=== PATIENT | female | born 2000 | race Caucasian/White ===

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

== ENCOUNTER 2022-08-09 12:40 | Emergency (ER) | payer OTHER, SELFPAY ==
--- NOTE | ~2022-08-09 | XR_ITS ---
EXAMINATION: XR chest 1V portable 08/09/2022 14:11 INDICATION: Chest pain and tightness PROCEDURE: AP portable chest COMPARISON: No prior studies for comparison. FINDINGS: The lungs are clear. The cardiomediastinal silhouette is within normal limits. There are no pleural effusions. There is no pneumothorax suspected. IMPRESSION: 1: NO ACUTE CARDIOPULMONARY DISEASE. Reviewed, dictated and finalized at location L.
--- NOTE | 2022-08-09 12:42 | ECG_ITS ---
Measurements Intervals [place] Rate: 68 P: 28 UT: 130 QRS: 54 QRSD: 89 T: 38 QT: 365 QTc: 390 Interpretive Statements SINUS RHYTHM BASELINE ARTIFACT- I, III, AVL NORMAL ECG NO PREVIOUS ECG AVAILABLE FOR COMPARISON Electronically Signed On 08-09-2022 12:55:27 CDT by Morro Tran D.O.
[2022-08-09 12:49] VITALS: BP 122/66; PULSE 74; RESP 18; TEMP 36.6; O2SAT 97
--- NOTE | 2022-08-09 13:41 | ED.CHESTPAIN ---
HPI - Chest Pain General Chief Complaint: Chest Pain <Octavia Angela PA-C - Last Filed: 08/09/22 15:35> Stated Complaint: chest pain <Octavia Angela PA-C - Last Filed: 08/09/22 15:35> Time Seen by Provider: 08/09/22 12:58 <Octavia Angela PA-C - Last Filed: 08/09/22 15:35> History of Present Illness HPI narrative: 22-year-old female, LMP 08/03, reports for evaluation of substernal chest pain x2 days. Patient reports the chest pain is intermittent and feels like a stabbing sensation. States the pain comes and last about 45 minutes. States it does not get better or worse with eating. She reports associated shortness of breath difficulty taking a deep breath when the chest pain is present. She also reports feeling lightheaded earlier today around 1100 after she bent over to the ground. States she had to sit on the ground afterwards due to the dizziness. Reports that she has been in the ED, the dizziness has resolved and she has not had any chest pain. Denies vision changes, focal numbness or weakness, abdominal pain, heartburn, nausea, vomiting, diarrhea, headache. Patient is currently asymptomatic. <Octavia Angela PA-C - Last Filed: 08/09/22 15:35> Related Data Allergies/Adverse Reactions: Allergies Allergy/AdvReac Type Severity Reaction Status Date / Time amoxicillin Allergy Swelling Verified 08/09/22 12:41 of Lip/Tongue/Throat <Octavia Angela PA-C - Last Filed: 08/09/22 15:35> Review of Systems Review of Systems: CONSTITUTIONAL: Denies fever, chills EYES: Denies visual changes, redness, or discharge. ENT: Denies rhinorrhea, congestion, sore throat, or otalgia. CARDIOVASCULAR: See HPI RESPIRATORY: Denies cough or dyspnea. GASTROINTESTINAL: Denies abdominal pain, nausea, vomiting, or diarrhea. GENITOURINARY: Denies dysuria or hematuria. SKIN: Denies rash or itching. MUSCULOSKELETAL: Denies back pain, joint pain, or myalgia. NEUROLOGIC: Denies headache, numbness, dizziness, or weakness. PSYCHIATRIC: Denies anxiety or depression. <Octavia Angela PA-C - Last Filed: 08/09/22 15:35> [facility] Past Medical History Medical History: Medical History Capsulitis of metatarsophalangeal (MTP) joint of right foot Metatarsalgia of right foot <Octavia Angela PA-C - Last Filed: 08/09/22 15:35> Social History Social History: Social History Smoking status: Never smoker <Octavia Angela PA-C - Last Filed: 08/09/22 15:35> Exam Narrative: GENERAL: Well-appearing, in no acute distress. Patient resting comfortably in exam bed. She is pleasant and conversational. HEAD: Normocephalic EYES: PERRLA, EOMI ENT: Nares clear. Mucous membranes moist. Oropharynx without tonsillar hypertrophy exudate or other lesions. NECK: Supple. CHEST: No respiratory distress. Clear to auscultation, no adventitious breath sounds. No tenderness to chest wall. HEART: Regular rate and rhythm. No murmur heard. Normal peripheral pulses. ABDOMEN: Soft, nontender, normal active bowel sounds. No CVA tenderness. EXTREMITIES: Normal range of motion. No edema. SKIN: Warm, dry, no rash. NEURO: No focal deficits. Alert and oriented x3. Cranial nerves II through XII grossly intact. Patient moving all extremities spontaneously. Ambulating without difficulty. PSYCH: Normal mood and affect. <Octavia Angela PA-C - Last Filed: 08/09/22 15:35> Course RELEASE MANAGER/PA Physician Supervision For this patient encounter, I reviewed the RELEASE MANAGER or PA documentation, treatment plan, and I was responsible for the medical decision making. <Gabriel Manning MD - Last Filed: 08/10/22 12:01> Vital Signs Vital signs: Vital Signs Temperature 98 F 08/09/22 12:49 Pulse Rate 74 08/09/22 12:49 Respiratory Rate 18 08/09/22 12:49 Blood Pressure 122/66 08/09/22 12:49 Pu
[2022-08-09] MEDS: SODIUM CHLORIDE 0.9% IV 1,000 ML 999 ML IV CONT (13:55)
[2022-08-09 14:05] LABS: Basophils Percent Auto 0.3 % (0.2-1.2); Eosinophils Absolute Auto 0.2 K/mm3 (0-0.3); Eosinophils Percent Auto 1.7 % (0-4.4); Hematocrit 41.5 % (37.0-47.0); Hemoglobin 13.4 g/dL (12.0-15.0); Immature Granulocyte Absolute 0.04 K/mm3 (0.00-0.031); Immature Granulocyte Percent A 0.4 % (0-0.5); Lymphocytes Absolute Auto 2.97 K/mm3 (0.9-3.2); Lymphocytes Percent Auto 29.4 % (18.3-44.2); Mean Corpuscular HGB Conc 32.3 g/dl (32-36); Mean Corpuscular Hemoglobin 28.7 pg (26-34); Mean Corpuscular Volume 88.9 fl (80-100); Mean Platelet Volume 10.6 fl (7.4-10.4); Monocytes Absolute Auto 0.7 K/mm3 (0.1-0.6); Monocytes Percent Auto 6.4 % (2.6-8.5); Neutrophils Absolute Auto 6.3 K/mm3 (1.3-6.7); Neutrophils Percent Auto 61.8 % (45.5-73.1); Platelet Count Result 235 k/mm3 (150-375); Red Blood Count 4.67 M/mm3 (4.2-5.4); Red Cell Distribution Width 12.3 % (11.5-14.5); White Blood Count 10.1 K/mm3 (4.5-10.0)
[2022-08-09 14:08] LABS: Appearance Urine Cloudy (Clear); Bacteria Urine Rare /hpf; Bilirubin Urine Negative (Negative); Blood Urine Negative (Negative); Color Urine Yellow (Yellow); Glucose Urine UA Negative (Negative); Ketones Urine Negative (Negative); Leukocyte Esterase Ur 1+ LEU/UL (Negative); Nitrate Urine Negative (Negative); Non Pathogenic Casts 0-2; Protein Urine Negative (Negative); RBC Urine 0-2 /hpf (0-2); Specific Grav Ur 1.021 (1.001-1.035); Squamous Epithelial Cell Urine Many /hpf (Few); Urobilinogen Urine 0.2 mg/dL (<2.0)
[2022-08-09 14:14] LABS: Add Urine Microscopic? YES; Alanine Aminotransferase 25 U/L (6-35); Albumin Level 4.6 g/dL (3.5-5.1); Alkaline Phosphatase 65 U/L (38-126); Anion Gap 8 mmol/L (8-16); Aspartate Amino Transferase 24 U/L (14-36); Bilirubin,Total 0.5 mg/dL (0.2-1.3); Blood Urea Nitrogen 12 mg/dL (7-17); Calcium 9.1 mg/dL (8.4-10.2); Carbon Dioxide 28 mmol/L (22-30); Chloride 103 mmol/L (98-107); Estimated CRCL calculation 151 ml/min; Estimated Glomerular Filt Rate > 60; Glucose 85 mg/dL (65-110); Lipase 44 U/L (23-300); Sodium 139 mmol/L (137-145)
[2022-08-09 14:29] VITALS: BP 118/76; BP 122/71; BP 125/79; PULSE 75; PULSE 82
[2022-08-09 14:35] LABS: Troponin I < 0.012 ng/mL (0.000-0.034)
== END 2022-08-09 15:34 | disposition home or self-care (01) ==
PROVIDERS: Emergency Provider Physician Assistant
DX: R07.89 Other chest pain (principal); N39.0 Urinary tract infection, site not specified
CPT/HCPCS: 36415; 71045; 80053; 81001; 81025; 83690; 84484; 85025; 85380; 87086; 87088; 93005; 96360; 99284; J7030

== ENCOUNTER 2023-09-17 16:27 | Emergency (ER) | payer SELFPAY ==
[2023-09-17 16:29] VITALS: BP 129/81; PULSE 94; RESP 18; TEMP 36.6; O2SAT 100
[2023-09-17 17:04] LABS: Basophils Percent Auto 0.3 % (0.2-1.2); Eosinophils Absolute Auto 0.1 K/mm3 (0-0.3); Hematocrit 38.2 % (37.0-47.0); Hemoglobin 12.9 g/dL (12.0-15.0); Immature Granulocyte Absolute 0.05 K/mm3 (0.00-0.031); Immature Granulocyte Percent A 0.5 % (0-0.5); Lymphocytes Absolute Auto 2.17 K/mm3 (0.9-3.2); Lymphocytes Percent Auto 20.7 % (18.3-44.2); Mean Corpuscular HGB Conc 33.8 g/dl (32-36); Mean Corpuscular Hemoglobin 28.9 pg (26-34); Mean Corpuscular Volume 85.7 fl (80-100); Mean Platelet Volume 11.1 fl (7.4-10.4); Monocytes Absolute Auto 0.5 K/mm3 (0.1-0.6); Monocytes Percent Auto 4.7 % (2.6-8.5); Neutrophils Absolute Auto 7.6 K/mm3 (1.3-6.7); Neutrophils Percent Auto 72.8 % (45.5-73.1); Platelet Count Result 195 k/mm3 (150-375); Red Blood Count 4.46 M/mm3 (4.2-5.4); Red Cell Distribution Width 12.3 % (11.5-14.5); White Blood Count 10.5 K/mm3 (4.5-10.0)
[2023-09-17 17:10] LABS: Appearance Urine Cloudy (Clear); Bacteria Urine 1+ /hpf; Bilirubin Urine Negative (Negative); Blood Urine Negative (Negative); Color Urine Yellow (Yellow); Glucose Urine UA Negative (Negative); Ketones Urine Trace mg/dL (Negative); Leukocyte Esterase Ur Trace LEU/UL (Negative); Nitrate Urine Negative (Negative); Non Pathogenic Casts 0-2; Protein Urine Negative (Negative); RBC Urine 0-2 /hpf (0-2); Specific Grav Ur 1.037 (1.001-1.035); Squamous Epithelial Cell Urine Many /hpf (Few); WBC Urine 21-50 /hpf (0-3); pH Urine 5.5 (5.0-9.0)
[2023-09-17 17:13] LABS: Alanine Aminotransferase 15 U/L (6-35); Albumin Level 4.4 g/dL (3.5-5.1); Alkaline Phosphatase 52 U/L (38-126); Anion Gap 6 mmol/L (4-12); Aspartate Amino Transferase 19 U/L (14-36); Bilirubin,Total 0.4 mg/dL (0.2-1.3); Blood Urea Nitrogen 11 mg/dL (7-17); Calcium 9.2 mg/dL (8.4-10.2); Carbon Dioxide 25 mmol/L (22-30); Chloride 106 mmol/L (98-107); Estimated CRCL calculation 154 ml/min; Estimated Glomerular Filt Rate > 60; Glucose 102 mg/dL (65-110); Lipase 50 U/L (23-300); Potassium 4.2 mmol/L (3.4-5.0); Pregnancy On Board Control Positive; Sodium 137 mmol/L (137-145); Urine Pregnancy Test Positive
--- NOTE | 2023-09-17 17:13 | ED.ABDPAIN ---
HPI - Abdominal Pain General Chief Complaint: Abdominal Pain Stated Complaint: abd pain Time Seen by Provider: 09/17/23 17:00 Source: patient Mode of arrival: ambulatory Limitations: no limitations History of Present Illness HPI narrative: Patient is 23 years old white female reports intermittent abdominal pain with nausea for over 1 month. Last menstrual period June 2023. Patient is 0, para 0 0. Patient denies any vaginal bleeding or discharge, currently no abdominal pain. Related Data Allergies Allergy/AdvReac Type Severity Reaction Status Date / Time amoxicillin Allergy Swelling Verified 08/09/22 12:41 of Lip/Tongue/Throat Review of Systems Review of Systems: All systems reviewed & are unremarkable except as noted in HPI and below PMFSH Past Medical History Medical History Capsulitis of metatarsophalangeal (MTP) joint of right foot Metatarsalgia of right foot Social History Social History Smoking status: Never smoker Exam Narrative: General appearance: Well-developed, well-nourished Skin: Normal color Head: Normocephalic, nontraumatic Eyes: Clear conjunctiva ENT: Oropharynx normal, ears normal, nose normal Neck: Supple, nontender Chest and respiratory: Airway patent, no respiratory distress, no accessory muscle use Heart: Regular rate/rhythm Abdomen: Soft, nontender, no organomegaly, quiet bowel sounds Vascular: Normal peripheral pulses, normal capillary refill. Musculoskeletal: Normal range of motion, nontender back Neurologic: Alert and oriented ?3, SPUD SORTER is normal as tested, no gross motor deficit Course Vital Signs Vital signs: Vital Signs Temperature 36.6 C 09/17/23 16:29 Pulse Rate 94 09/17/23 16:29 Respiratory Rate 18 09/17/23 16:29 Blood Pressure 129/81 09/17/23 16:29 Pulse Oximetry 100 09/17/23 16:29 Oxygen Delivery Room Air 09/17/23 16:29 Temperature 36.6 C 09/17/23 16:29 Pulse Rate 94 09/17/23 16:29 Respiratory Rate 18 09/17/23 16:29 Blood Pressure 129/81 09/17/23 16:29 Pulse Oximetry 100 09/17/23 16:29 Oxygen Delivery Room Air 09/17/23 16:29 MDM - Abdominal Pain MDM Narrative Medical decision making narrative: Differential diagnosis included , urinary tract infection, electrolyte imbalance, gastritis, urinary tract infection Laboratory workup showed WBC of 10.5, urine test is positive, urinalysis positive for infection Discharged on amoxicillin, OBGYN follow-up, Tylenol as needed plus Zofran Differential Diagnosis Differential diagnosis: Likely other (As above) Medical Records Attestation: I reviewed the patient's medical records. Lab Data Attestation: I reviewed the patient's lab results. 09/17/23 16:56 09/17/23 16:56 Labs: Lab Results 09/17/23 Range/Units 16:56 WBC 10.5 H (4.5-10.0) K/mm3 RBC 4.46 (4.2-5.4) M/mm3 Hgb 12.9 (12.0-15.0) g/dL Hct 38.2 (37.0-47.0) % MCV 85.7 (80-100) fl MCH 28.9 (26-34) pg MCHC 33.8 (32-36) g/dl RDW 12.3 (11.5-14.5) % Plt Count 195 (150-375) k/mm3 MPV 11.1 H (7.4-10.4) fl Immature Gran % (Auto) 0.5 (0-0.5) % Neut % (Auto) 72.8 (45.5-73.1) % Lymph % (Auto) 20.7 (18.3-44.2) % [place] % (Auto) 4.7 (2.6-8.5) % Eos % (Auto) 1.0 (0-4.4) % Baso % (Auto) 0.3 (0.2-1.2) % Lymph # (Auto) 2.17 (0.9-3.2) K/mm3 [place] # (Auto) 0.5 (0.1-0.6) K/mm3 Eos # (Auto) 0.1 (0-0.3) K/mm3 Baso # (Auto) 0.0 (0.0-0.1) K/mm3 Abs Immat Gran (auto) 0.05 H (0.00-0.031) K/mm3 Absolute Neuts (auto) 7.6 H
[2023-09-17 17:14] LABS: Add Urine Microscopic? YES
== END 2023-09-17 17:47 | disposition home or self-care (01) ==
PROVIDERS: Emergency Medicine; Emergency Provider Emergency Medicine
DX: O23.40 Unspecified infection of urinary tract in pregnancy, unspecified trimester (principal); N39.0 Urinary tract infection, site not specified; Z3A.00 Weeks of gestation of pregnancy not specified
CPT/HCPCS: 36415; 80053; 81001; 81025; 83690; 85025; 87086; 99283

== ENCOUNTER 2023-11-20 10:33 | Outpatient (CLI) | payer MEDICAID, SELFPAY ==
--- NOTE | ~2023-11-20 | US_ITS ---
EXAMINATION: US OB /maternal detail DATE: 11/20/2023 11:09 INDICATION: Anatomic survey. Uncertain dates. TECHNIQUE: Real-time ultrasound of the pelvis was performed. COMPARISON: None. FINDINGS: There is a single living fetus in breech presentation. The placenta is anterior, 6.2 cm from the cer vix. The cervical length is 3.2 cm on transabdominal images, which is normal. heart rate is 140 beats per minute (bpm). The amniotic fluid volume is subjectively normal. The following biometric data were obtained: Biparietal diameter (BPD): 4.1 cm; head circumference (HC): 15.0 cm; abdominal circumference (AC): 14 .0 cm; femur length (FL): 2.7 cm. These measurements are discordant with low HC/AC ratio. Estimated weight is 258 g +/- 39 g, which correlates with the <3rd percentile when 04/02/24 is u sed as estimated date of delivery. As single measurements, these parameters are each equal to the following estimated gestational ages: BPD: 18 weeks 3 days. HC: 18 weeks 0 days. AC: 19 weeks 3 days. FL: 18 weeks 3 days. estimated gestational age based solely on measurements from this exam is 18 weeks 4 days +/- 1 weeks 2 days. The cerebral ventricles, cerebellum, cisterna magna, nuchal fold, and spine are normal. The diaphragm , stomach, and kidneys are normal. There are two umbilical arteries to yield a 3-vessel cord. The cor d insertion is normal. IMPRESSION: 1. Single living fetus in breech presentation. 2. Small for gestational age. Estimated weight is 258 g +/- 39 g, which correlates with the <3 rd percentile when 04/02/24 is used as estimated date of delivery. 3. Discordant biometrics with low HC/AC. 4. heart and bladder not well visualized. Otherwise normal anatomic survey. Reviewed, dictated and finalized at location A. IMPRESSION: 1. Single living fetus in breech presentation. 2. Small for gestational age. Estimated weight is 258 g +/- 39 g, which correlates with the <3rd percentile when 04/02/24 is used as estimated date of d elivery. 3. Discordant biometrics with low HC/AC. 4. heart and bladder not well visualized. Otherwise normal anatomic survey.
== END 2023-11-20 10:34 | disposition home or self-care (01) ==
LOC: MICIMG 10:34
PROVIDERS: PCP Nurse Practitioner Women's Health; Visit Provider Nurse Practitioner Women's Health
DX: Z36.87 Encounter for antenatal screening for uncertain dates (principal)
CPT/HCPCS: 76805

== ENCOUNTER 2024-02-25 13:41 | Observation (INO) | payer MEDICAID, SELFPAY ==
[2024-02-25 14:02] VITALS: BMI 38.0
--- NOTE | 2024-02-25 14:04 | OBADM ---
This patient, Yvrose Mazariegos, admitted to the OB room OB Post 116 for observation. Patient/family oriented to hospital policies and general routines including ID bracelet, bed and alarms, visiting hours, pain management, procedures, bathroom and other care routines, personal items, smoking policy, room service/diet, and visiting hours. Patient/Family are encouraged to report perceived risks to care and to ask questions if they do not understand what they are told or what they should do.
[2024-02-25 14:28] VITALS: BP 121/67; PULSE 96
--- NOTE | 2024-02-25 14:51 | PC.NURSE ---
Dr. Elizabeth called regarding patient's complaint of abdominal pain to the left of her belly button. NST reactive, no contractions, leaking or vaginal bleeding. Okay to discharge.
--- NOTE | 2024-03-27 11:12 | PM.OBTRLD ---
OB - Triage/Final Diagnosis Visit Information Comments/Additional reasons for admission: I have assessed the risk for this patient, Yvrose aMzariegos, and determined that she would benefit from observation care. Final Diagnosis (1) Abdominal pain affecting : Code(s): O26.899 - Other specified related conditions, unspecified trimester; R10.9 - Unspecified abdominal pain Status: Acute
== END 2024-02-25 14:52 ==
PROVIDERS: Admitting Provider Obstetrics & Gynecology Gynecology; Visit Provider Obstetrics & Gynecology
DX: O26.893 Other specified pregnancy related conditions, third trimester (principal); R10.9 Unspecified abdominal pain; Z3A.32 32 weeks gestation of pregnancy
CPT/HCPCS: G0378; G0379

== ENCOUNTER 2024-04-04 21:59 | Observation (INO) | payer MEDICAID, SELFPAY ==
[2024-04-04 22:08] VITALS: BP 126/82; PULSE 97
[2024-04-04 22:15] VITALS: BP 126/71; PULSE 91
[2024-04-04 22:30] VITALS: BP 120/85; PULSE 92
[2024-04-04 22:45] VITALS: BP 122/77; PULSE 95
--- NOTE | 2024-04-04 23:18 | OBADM ---
This patient, Yvrose Mazariegos, admitted to the OB room Labor/Delivery/Recovery 105 for observation. Patient/family oriented to hospital policies and general routines including ID bracelet, bed and alarms, visiting hours, pain management, procedures, bathroom and other care routines, personal items, smoking policy, room service/diet, and visiting hours. Patient/Family are encouraged to report perceived risks to care and to ask questions if they do not understand what they are told or what they should do.
[2024-04-04 23:22] VITALS: BMI 23.4
--- NOTE | 2024-04-06 08:01 | PM.OBTRLD ---
OB - Triage/Final Diagnosis Visit Information Reason for evaluation: threatened labor Comments/Additional reasons for admission: I have assessed the risk for this patient, Yvrose Mazariegos, and determined that she would benefit from observation care.
--- OUTSIDE RECORDS SUMMARY | 2024-04-09 09:38 | XMS_ITS | Referral Summary ---
Author Organization [facility] Address [address] [place] [address] Care Team Providers Care Cad Administrator Name Role Phone Unavailable Primary Care Provider Unavailabl e Source Comments [facility],non-owned Affiliates and Associated Physician Practices is amultiple site organization consisting of ambulatory clinics and hospital sitesin [place], [place], [place] and [place]. This disclosure is being madepursuant to the Care Everywhere program and may not contain all information available regarding this patient. Last updated 17.[facility] Allergies Active Allergy Reactions Criticality Noted Date Comments Amoxicillin Rash,Swelling Low 09/08/2012 Swelling of the tongue Penicillins Anaphylaxis High 01/23/2020 Medications * Be aware that medications may not be up to date on this document. Alwaysverify current medications with the patient. Medication Sig Dispensed Refills Start Date End Date Status naproxen (NAPROSYN) 500 MG tablet Take 1 (one) tablet by mouth 2 times daily 180 tablet 12/26/2020 Active Additional Information Patient not taking.Reported on 01/17/2021 Active Problems Problem Noted Date Diagnosed Date Migraine with aura and witho ut status migrainosus, not intractable 05/13/2017 Assessment & Plan (09/02/2017 10:04 AM CDT): Chronic migraines without aura, worsened by several lifestyle issues such as hydration, sedentary lifestyle/increased screen time, neck muscle tightness etc. Will try to improve lifestyle issues and then can consider switching daily preventatives if headaches do not improve. 1. Keep headache diary 2. Maintain active lifestyle - increase physical activity, reduce screen time. 3. Eat healthy diet, and do not skip meals 4. Drink plenty of water, and avoid caffeine regularly. 5. Sleep: 1. Maintain good sleep routine. 2. Avoid distractions at bedtime such as TV, computer. 3. Get at least 8-10 hours of sleep nightly 4. Reduce daytime naps. 6. Do not use pain medication (such as Tylenol, Ibuprofen) more than 2-3 times/week in order to avoid medication overuse headaches 7. Use Naproxen 50 mg tabs - 1 tab needed only for moderate-severe headaches. 8. If Naproxen is ineffective within 30-45 minutes, then may take Imitrex 100 mg tabs - 1 tab as needed for headaches. May repeat in 2-4 hours if no relief. No more than 2 tabs in 24 hours. Take Zofran 4 mg tabs - 1 tab for associated nausea. 9. Continue with Topamax 75 mg twice daily. Take regularly and as prescribed. 10. Refer to PT to address neck muscle tightness. 11. Call in 4-6 weeks with update regarding headaches, sooner for concerns BMI (body mass index), cristinaia tric, 85% to less than 95% for age 0609/08/2012 Resolved Problems Problem Noted Date Diagnosed Date Resolved Date Chronic headaches 09/08/2012 05/13/2017 Immunizations Name Administration Dates Next Due DTaP VACCINE IM (6wk-6yrs) 06/26/2006,,2001,06/05,2001 HEP A PEDS 2 DOSE 05/17/2015,08/23/2014 HIB Hep B 02/11/2002,2001,2001 Human Papilloma Virus Luis Eduardo valent Vaccine 08/23/2014 MENINGOCOCCAL CONJUGATE (MCV4P) 07/22/2017,08/23 MMR 06/26/2006,05/12/2002 PNEUMOCOCCAL PCV7 CONJ, PEDS 05/12/2002, 2001,2001,04/01 POLIO IPV 06/26/2006, 3,2001,04/01 TDAP (7yrs+) 09/08/2012 VARICELLA 06/26/2006,02/11/2002 Social History Tobacco Use Types Packs/Day Years Used Date Smoking Tobacco: Never Smokeless Tobacco: Never Comments:father smokes in th e house when they visit Alcohol Use Standard Drinks/Week Comments Never 0 (1 standard drink = 0.6 oz pur e alcohol) AUDIT-C Answer Date Recorded Q1: How often do you have a drink containing alc ohol? Never 11/24/2019 Average Number of Drinks Not on file Frequency of Binge Drinking Not on file 10/2019 PHQ-2 Answer Date Recorded PHQ2 TOTAL SCORE 0 01/18/2021 Sex and Gender Information Value Date Recorded Sex Assigned at Not on file Gender Identity Not on file Sexual Orientation Not on file Last Filed Vital Signs Vital Sign Reading Time Taken Comments Blood Pressure 135/81 01/17/2021 10:44 AM CDT Pulse 94 01/17/2021 10:44 AM CDT Temperature 36.9 ??C (98.5 ??F) 01/17/2021 10:44 AM C DT Respiratory Rate - - Oxygen Saturation - - Inhaled Oxygen Concentration - - Weight 111.6 kg (246 lb) 01/17/2021 10:44 AM CDT Height 166.4 cm (5' 5.5 ) 11/24/2019 9:29 AM CDT Body Mass Index 40.31 11/24/2019 9:29 AM CDT Plan of Treatment Not on file Goals Goal Patient Goal Type Associated Problems Recent Progress Patient-Stated? Author Exercise 3X per week (30 min per time) Exercise Not on track( 9:30 AM CDT) No Mgai Hernandez APRN-INGOT SUPERVISOR Use safety retraint in car Lifestyle On track( 9:30 AM CDT) No Estee Trevino, JOSE Administered Medications
--- OUTSIDE RECORDS SUMMARY | 2024-04-09 09:38 | XMS_ITS | Clinical Summary ---
Author Organization [facility] Address [address] [place] [address] Care Team Providers Care Recruitment Consultant Name Role Phone Unavailable Primary Care Provider Unavailabl e Source Comments [facility],non-owned Affiliates and Associated Physician Practices is amultiple site organization consisting of ambulatory clinics and hospital sitesin [place], [place] and [place]. This disclosure is being madepursuant to the Care Everywhere program and may not contain all information available regarding this patient. Last updated 17.[facility] Allergies Active Allergy Reactions Criticality Noted Date [...] 06/26/2006, 3,2001,04/01 TDAP (7yrs+) 09/08/2012 VARICELLA 06/26/2006,02/11/2002 Family History Medical History Relation Name Comments Hypertension Maternal Grandfather Diabetes Maternal Grandmother Heart Failure Maternal Grandmother heart attack 2012 Hypertension Maternal Grandmother Diabetes Mother Migraine Mother Heart Failure Paternal Grandfather Hypertension Paternal Grandfather Hypertension Paternal Grandmother Relation Name Status Comments Father Alive Maternal Grandfather Alive Maternal Grandmother Alive Mother Alive Paternal Grandfather Alive Paternal Grandmother Alive Sister Alive Social History Tobacco Use Types Packs/Day Years [...] Average Number of Drinks Not on file 020 Frequency of Binge Drinking Not on file [...] 11/24/2019 9:29 AM CDT Plan of Treatment Health Maintenance Due Date Last Done Comments PAP SMEAR 2001 HIV SCREENING 01/29/2016 CHLAMYDIA/GONORRHEA SCREENING 2017 MENINGOCOCCAL (Group B) VACC INE (1 of 2 - Standard) 2017 HEPATITIS C SCREENING 01/24/2019 DTAP/TDAP/TD VACCINES (7 - T d or Tdap) 09/08/2022 09/08/2012, 06/26/2006, 07/30/2002, Additional history exists COVID-19 VACCINE (3 - 2023-2 5 season) 2023 06/05/2020, 05/14/2020 INFLUENZA VACCINE (#1) 2023 DEPRESSION SCREENING 03/18/2024 11/24/2019, 11/24/19 20 ZOSTER VACCINE (1 of 2) 2051 HEPATITIS B VACCINE Completed 02/11/2002, 2001, 2001 HIB VACCINE Completed 02/11/2002, 05/17, 2001 PNEUMOCOCCAL VACCINE Completed 05/12/2002, 2001, 2001, Additional history exists HPV VACCINE Discontinued 08/23/2014 MENINGOCOCCAL VACCINE Completed 07/22/2017, 015 Goals Goal Patient Goal Type Associated Problems Recent Progress Patient-Stated? Author Exercise 3X per week (30 min per time) Exercise Not on track( 9:30 AM CDT) No Magi Hernandez APRN-FRONT OFFICE HELP Use safety retraint in car Lifestyle On track( 9:30 AM CDT) No Estee Trevino, JOSE
--- OUTSIDE RECORDS SUMMARY | 2024-04-09 09:39 | XMS_ITS | Clinical Summary ---
Author Organization [facility] Address [address] [place] [phone] Phone Care Team Providers Care Warp Dresser Name Role Phone Unavailable Primary Care Provider Unavailabl e Social History Tobacco Use Types Packs/Day Years Used Date Smoking Tobacco: Never Assessed Comments Unknown Sex and Gender Information Value Date Recorded Sex Assigned at Not on file Legal Sex Female 3:06 PM CDT Gender Identity Not on file Sexual Orientation Not on file Plan of Treatment Health Maintenance Due Date Last Done Comments CHLAMYDIA SCREENING (ANNUAL) 11-24 YEARS 01/29/2012 HPV VACCINES (2 - 2-dose series) 02/22/2015 08/23/2014 CERVICAL CANCER SCREENING 2022 DTAP/TDAP/TD VACCINES (7 - Td or Tdap) 09/08/2022 09/08/2012, 06/26/2006, 07/30/2002, Additional history exists INFLUENZA VACCINE (#1) 2023 HEPATITIS B VACCINES Completed 02/11/2002, 2001, 2001 PNEUMOCOCCAL VACCINE 0-64 YEARS Aged Out 05/12/2002, 2001, 2001, Additional history exists No longer eligible based on patient's age to complete this topic Insurance MEDICAID [place]
--- OUTSIDE RECORDS SUMMARY | 2024-04-09 09:39 | XMS_ITS | Patient Health Summary ---
Author Organization [facility] [employer] Address [address] [place] [address] Care Team Providers Care Nuclear Control Operator Name Role Phone Unavailable Primary Care Provider Unavailabl e Note from [facility] [place],non-owned Affiliates and Associated Physician Practices is amultiple site organization consisting of ambulatory clinics and hospital sitesin [place], [place], [place] and [place]. This disclosure is being madepursuant to the Care Everywhere program and may not contain all information available regarding this patient. Last updated 17.[facility] [employer] Allergies * Amoxicillin(Rash,Swelling) -Low Criticality * Penicillins(Anaphylaxis) -High Criticality Medications * Be aware that medications may not be up to date on this document. Alwaysverify current medications with the patient. * naproxen (NAPROSYN) 500 MG tablet(Started 12/26/2020) Take 1 (one) tablet by mouth 2 times daily Active Problems Problem Noted Date Diagnosed Date Migraine with aura and witho ut status migrainosus, not intractable 05/13/2017 BMI (body mass index), pedia tric, 85% to less than 95% for age 0609/08/2012 Resolved Problems Problem Noted Date Diagnosed Date Resolved Date Chronic headaches 09/08/2012 05/13/2017 Immunizations * DTaP VACCINE IM (6wk-6yrs)(Given 06/26/2006, 07/30/2002, 2001, 2001, 2001) * HEP A PEDS 2 DOSE(Given 05/17/2015, 08/23/2014) * HIB Hep B(Given 02/11/2002, 2001, 2001) * Human Papilloma Virus Quadrivalent Vaccine(Given 08/23/2014) * MENINGOCOCCAL CONJUGATE (MCV4P)(Given 07/22/2017, 08/23/2014) * MMR(Given 06/26/2006, 05/12/2002) * PNEUMOCOCCAL PCV7 CONJ, PEDS(Given 05/12/2002, 2001, 2001, 2001) * POLIO IPV(Given 06/26/2006, 07/30/2002, 2001, 2001) * TDAP (7yrs+)(Given 09/08/2012) * VARICELLA(Given 06/26/2006, 02/11/2002) Social History Tobacco Use Types Packs/Day Years [...] Mass Index 40.31 11/24/2019 9:29 AM CDT Procedures * XR FOOT RIGHT 2VW(Performed 12/26/2020) Performed for Right foot pain * SKIN TEST PPD - POINT OF CARE(Performed 01/25/2020) Performed for PPD screening test * CULTURE FUNGUS OTHER(Performed 12/17/2017) Performed for Rash * LIPID PROFILE+GLUCOSE - POINT OF CARE (AMB)(Performed 07/22/2017) Performed for Screening cholesterol level * CT HEAD WO CONTRAST(Performed 05/11/2014) Results * XR FOOT RIGHT 2VW (12/26/2020) Anatomical Region Laterality Modality Ankle / Foot Other 12/26/2020 Dannie Hung DO DIAGNOSTIC IMAG ING ORDERABLES * SKIN TEST PPD - POINT OF CARE (01/25/2020 3:12 PM FOREIGN BANKNOTE TELLER) PPD 0 MM Comment:negative Other MISCELLANEOUS SAMPLE S / Unknown 01/25/2020 3:12 PM FOREIGN BANKNOTE TELLER Josephine Tinsley SUBSTATION SUPERINTENDENT-MORTGAGE LOAN OFFICER LAB - POINT OF CARE ORDERABLES * CULTURE FUNGUS OTHER (12/17/2017 4:05 PM CDT) Fungus Culture Final report [facility] ACCOUNT BILL Result 1 Trichophyton species [facility] ACCOUNT BILL Microbiology LESION SPECIMEN / Unknown 12/17/2017 4:05 PM CDT 12/17/2017 Narrative Resulting Agency Comment [facility] [address] ??[facility] [phone] Dannie Hung DO LAB - MICROBIOL OGY ORDERABLES [facility] ACCOUNT BILL [address] [place] [address] * LIPID PROFILE+GLUCOSE - POINT OF CARE (AMB) (07/22/2017 10:53 AM CDT) QC Verified Yes Yes Cholesterol POCT 165 200 mg/dl HDL POCT 28 mg/dL Triglycerides POCT 93 130 mg/dL LDL 118 130 mg/dl Non HDL Cholesterol POCT 137 145 mg/dL Total Cholesterol/HDL Ratio POCT 5.9 6.0 Glucose 100 70 - 126 mg/dL Blood BLOOD SPECIMEN / Unknown 07/22/2017 10:53 AM CDT Sadia Bingham MD LAB - POINT OF CARE ORDERABLES * CT HEAD NON CONTRAST (05/11/2014) Anatomical Region Laterality Modality Head Other Sadia Bingham MD CT ORDERABLES
--- OUTSIDE RECORDS SUMMARY | 2024-04-09 09:39 | XMS_ITS | Data Portability ---
Author Organization [facility] [employer]os , [facility]Gianfranco Address [address] [place] [address] Assessment Encounter Date Assessment Date Assessment LastModified by Organization Details LastModified Time 10/30/2023 10/30/2023 Pt comes in today for a New/First OB visit. AD: 04/17/2024 based on US -- PMH:No PMH -- Medications: Taking daily PNV, not taking any other medications -- Mom/Sisters with hx of Pre-Eclampsia: Mom -- History of Genital HSV: Denies -- Genetic Questions in OB Episode Done -- Accepts [facility]. Would like to know gender. Discussed logging on to the [employer] portal to find Gender Results POC -- NOB labs done today -- Accepts [facility] -- PAP -- Low dose aspirin recommended -- Pre- BMI: 37.5 -- RTC 3 weeks [email or web address] Not available 10/30/2023 11:23:27 Plan of Treatment Reminders Order Date Submit Date Provider Last Modified By Organization Details Last Modified Time Details Appointments None recorded. Lab test, urine 2023 024 [email or web address] [facility], [address] [place], [address], 4 10:33:34 genetic screen, unspecified specimen 2023 024 SAMMIE Allen, [address], [place], [address], 4 19:17:51 hemoglobin A1c, QN, blood 2023 024 SAMMIE Briceño Wilfred[facility], [address] [place], [address], 4 11:15:01 abo group + rh type, blood 2023 [facility], [address] [place], [address], 4 16:50:42 CBC w/ auto diff 2023 [facility], [address] [place] [address], [address], 4 12:02:00 CT + NG DNA, PCR, unspecified specimen 2023 [facility], [address] [place] [address], [address], 4 11:51:36 drug of abuse panel, urine 2023 [facility] [address], [address] [place], [address], 4 16:18:00 obstetric screen + HIV, serum or blood 2023 [facility] [address], [address] [place], [address], 4 14:47:41 measles igg Ab, serum 2023 [facility], [address] [place], [address], 4 16:50:41 culture, urine 2023 [facility], [address] [place], [address], 4 16:50:42 varicella-z anam igg Ab screen, serum 2023 024 [facility], [address] [place], [address], 4 16:50:39 hemoglobino abran profile, blood 2023 [facility], [address] [place], [address], 4 16:50:39 antibody screen, serum or plasma 2023 [facility], [address] [place], [address], 4 16:50:41 aneuploidy risk, chromosome specific circulating cell free (ccf) DNA, maternal serum [facility], [place], [address], 4 03:49:31 afp (alpha-feto protein) panel, maternal screen, serum 2023 [facility], [address] [place], [address], 4 16:50:40 Referral None recorded. Procedures None recorded. Surgeries None recorded. Imaging US, transvagina l 2023 RICHMOND Not available 15:22:46 Medication Orders Adult Low Dose Aspirin 81 mg tablet,lane yed release 2023 [id number], [address] [facility], [place], [place], [id number], 4 11:18:08 Patient TargetsNo targets recorded. Patient Instructions Encounter Date Encounter Id Patient Instructions Last Modified By Organization Details Last Modified Time 10/22/2023 [id number] [facility] OB Booklet [email or web address] Not available 10/22/2023 10:33:32 Reason for Referral None Reported. Results Created Date Observation Date Name Description Value Unit Range Abnormal Flag Note LastModifiedBy Organization Detail LastModifiedTime 10/22/19 24 10/22/2023 pregn geoff test, urine HCG positi ve Not Available [facility] [address] [facility], [place], [address], 10/22/2023 09:20:20 10/30/19 24 10/31/2023 HEMOG LOBIN A1C hemoglobin A1C 4.9 % <5.7 normal The refer ence range for HbA1c is indic ated in the table below . Sugge sted Diagn osis =6.5% Consi stent with diabe kenia 5.7 6.4% Consi stent with incre ased risk for diabe kenia (pred iabet ic) <5.7% Consi stent with the absen ce of diabe kenia Not Available [facility] [address] [place], [address], 10/31/2023 11:15:01 10/30/19 24 10/31/2023 CT/NG chlamydia trachomatis CT neg negati ve normal This repor t is inten ded for us in clini massiel monit oring and manag ement of patie nts. It is not inten ded for use in medic al-le gal appli catio n. Not Available [place] [facility] [address] [place], [address], 10/31/2023 11:51:36 10/30/19 24 10/31/2023 CT/NG neisseria gonorrhoeae GC neg negati ve normal This repor t is inten ded for us in clini massiel monit oring and manag ement of patie nts. It is not inten ded for use in medic al-le gal appli catio n. Not Available [place] [facility] [address] [place], [address], 10/31/2023 11:51:36 10/30/19 24 10/31/2023 CBC (INCL UDES DIFF/ PLT) WBC 10.6 thous and/u L 4.0 - 9.8 high Not Available [place] [address] [place], [address], 10/31/2023 12:02:00 10/30/19 24 10/31/2023 CBC (INCL UDES DIFF/ PLT) RBC 4.3 ryann on/uL 3.9 - 4.9 normal Not Available [address], [address], 10/31/2023 12:02:00 10/30/19 24 10/31/2023 CBC (INCL UDES DIFF/ PLT) hemoglobin 12.4 g/dL 11.8 - 14.8 normal Not Available [address], [address], 10/31/2023 12:02:00 10/30/1910/31/2023 CBC (INCL UDES DIFF/ PLT) hematocrit 37.7 % 35.5 - 44.0 normal Not Available [address], [address], 10/31/2023 12:02:00 10/30/1910/31/2023 CBC (INCL UDES DIFF/ PLT) MCV 88.3 fL 82.0 - 99.0 normal Not Available [address], [address], 10/31/2023 12:02:00 10/30/1910/31/2023 CBC (INCL UDES DIFF/ PLT) MCH 29.0 pg 27.2 - 32.6 normal Not Available [address], [address], 10/31/2023 12:02:00 10/30/1910/31/2023 CBC (INCL UDES DIFF/ PLT) MCHC 32.9 g/dL 31.5 - 35.5 normal Not Available [address], [address], 10/31/2023 12:02:00 10/30/1910/31/2023 CBC (INCL UDES DIFF/ PLT) RDW-CV 13.0 % 11.5 - 14.5 normal Not Available [address], [address], 10/31/2023 12:02:00 10/30/19 24 10/31/2023 CBC (INCL UDES DIFF/ PLT) platelet 204 thous and/u L 140 - 350 normal Not Available [address], [address], 10/31/2023 12:02:00 10/30/19 24 10/31/2023 CBC (INCL UDES DIFF/ PLT) MPV 11.9 fL 9.3 - 12.4 normal Not Available [address], [address], 10/31/2023 12:02:00 10/30/1910/31/2023 CBC (INCL UDES DIFF/ PLT) absolute neutrophil 8.45 thous and/u L 1.90 - 7.00 high Not Available [address], [address], 10/31/2023 12:02:00 10/30/19 24 10/31/2023 CBC (INCL UDES DIFF/ PLT) absolute lymphocyte 1.56 thous and/u L 0.70 - 4.50 normal Not Available [address], [address], 10/31/2023 12:02:00 10/30/19 24 10/31/2023 CBC (INCL UDES DIFF/ PLT) absolute monocyte 0.49 thous and/u L 0.10 - 1.30 normal Not Available [address], [address], 10/31/2023 12:02:00 10/30/19 24 10/31/2023 CBC (INCL UDES DIFF/ PLT) absolute eosinophil 0.07 thous and/u L <0.70 normal Not Available [address], [address], 10/31/2023 12:02:00 10/30/19 24 10/31/2023 CBC (INCL UDES DIFF/ PLT) absolute basophil 0.04 thous and/u L <0.20 normal Not Available [address], [address], 10/31/2023 12:02:00 10/30/19 24 10/31/2023 CBC (INCL UDES DIFF/ PLT) absolute immature granulocyte 0.02 thous and/u L <0.03 normal Not Available [address], [address], 10/31/2023 12:02:00 10/30/19 24 10/31/2023 OB PANEL - STD BLOOD WORK hep BS Ag Non-Re active non-re active normal Not Available [address], [address], 10/31/2023 14:47:41 10/30/19 24 10/31/2023 OB PANEL - STD BLOOD WORK hep C Ab Non-Re active non-re active normal Not Available [address], [address], 10/31/2023 14:47:41 10/30/19 24 10/31/2023 OB PANEL - STD BLOOD WORK HIV 1/2 Ag/Ab Non-Re active non-re active normal Not Available [address], [address], 10/31/2023 14:47:41 10/30/19 24 10/31/2023 OB PANEL - STD BLOOD WORK syphilis Ab Non-Re active non-re active normal Not Available [address], [address], 10/31/2023 14:47:41 10/30/19 24 10/31/2023 OB PANEL - STD BLOOD WORK rubella Ab IgG 9.8 IU/mL low INTER PRETI VE INFOR MATIO N: Rubel la Antib milla, IgG. < 5.0 IU/mL ..... ..... . Not consi stent with immun ity 5.0 - 9.9 IU/mL ..... . Equiv ocal: Indet ermin ate-R epeat testi ng in 10-14 days may be helpf ul. > or = 10.0 IU/mL ... Consi stent with immun ity The prese nce of Rubel la IgG antib milla sugge st respo nse to immun izati on or prior /curr ent expos ure to the Rubel la virus . Not Available [place] [facility] [address] [place], [address], 10/31/2023 14:47:41 10/30/19 24 11/04/2023 DRUG ABUSE PANEL 7 W/CON FIRM amphetamines Negati ve negati ve normal Not Available [place] [address] [place], [address], 11/04/2023 16:18:00 10/30/19 24 11/04/2023 DRUG ABUSE PANEL 7 W/CON FIRM barbiturates Negati ve negati ve normal Not Available [place] [facility] [facility] [address] [place] [address], [address], 11/04/2023 16:18:00 10/30/19 24 11/04/2023 DRUG ABUSE PANEL 7 W/CON FIRM benzodiazepi juanita Negati ve negati ve normal Not Available [place] [facility] [address] [place] [address], [address], 11/04/2023 16:18:00 10/30/19 24 11/04/2023 DRUG ABUSE PANEL 7 W/CON FIRM cocaine metabolites Negati ve negati ve normal Not Available [place] [facility] [address] [place] [address], [address], 11/04/2023 16:18:00 10/30/19 24 11/04/2023 DRUG ABUSE PANEL 7 W/CON FIRM cannabinoids Negati ve negati ve normal Not Available [place] [address] [place], [address], 11/04/2023 16:18:00 10/30/19 24 11/04/2023 DRUG ABUSE PANEL 7 W/CON FIRM methadone Negati ve negati ve normal Not Available [place] [facility] [facility] [address] [place] [address], [address], 11/04/2023 16:18:00 10/30/19 24 11/04/2023 DRUG ABUSE PANEL 7 W/CON FIRM opiates Negati ve negati ve normal Not Available [facility] [address] [place], [address], 11/04/2023 16:18:00 10/30/19 24 11/04/2023 DRUG ABUSE PANEL 7 W/CON FIRM creatinine, urine 96 mg/dL 20 - 275 normal Not Available [place] [facility] [address] [place], [address], 11/04/2023 16:18:00 10/30/19 24 11/04/2023 VARIC JUHI ZOSTE R VIRUS ANTIB MILLA (IGG) varicella zoster virus antibody (IgG) 151.70 index low Index Inter preta tion ----- ---- ----- ----- ----- ----- -- <135. 00 Negat digna - Antib milla not detec marycarmen 135.0 0 - 164.9 9 Equiv ocal > or = 165.0 0 Posit digna - Antib milla detec marycarmen A posit digna resul t indic ates that the patie nt has antib milla to VZV but does not diffe renti ate betwe en an activ e or past infec tion. The clini massiel diagn osis must be inter prete d in conju nctio n with the clini massiel signs and sympt oms of the patie nt. This assay relia reginald measu res immun ity due to previ ous infec tion but may not be sensi tive enoug h to detec t antib odies induc ed by vacci natio n. Thus, a negat digna resul t in a vacci nated indiv idual does not neces saril y indic ate susce ptibi lity to VZV infec tion. A more sensi tive test for vacci natio n-ind uced immun ity is Varic juhi Zoste r Virus Antib milla Immun ity Scree n, ACIF. Not Available [facility] [employer] [id number] [place] [address], [address], 11/04/2023 16:50:39 10/30/19 24 11/04/2023 HEMOG LOBIN OPATH Y EVALU ATION red blood cell count 4.26 ryann on/uL 3.80-5 .10 Not Available [address] [place], [address], 11/04/2023 16:50:39 10/30/19 24 11/04/2023 HEMOG LOBIN OPATH Y EVALU ATION hemoglobin 12.4 g/dL 11.7-1 5.5 Not Available [address], [address], 11/04/2023 16:50:39 10/30/19 24 11/04/2023 HEMOG LOBIN OPATH Y EVALU ATION hematocrit 38.5 % 35.0-4 5.0 Not Available [address] [address] [place], [address], 11/04/2023 16:50:39 10/30/19 24 11/04/2023 HEMOG LOBIN OPATH Y EVALU ATION MCV 90.4 fL 80.0-1 00.0 Not Available [address], [address], 11/04/2023 16:50:39 10/30/19 24 11/04/2023 HEMOG LOBIN OPATH Y EVALU ATION MCH 29.1 pg 27.0-3 3.0 Not Available [address] [address] [place], [address], 11/04/2023 16:50:39 10/30/19 24 11/04/2023 HEMOG LOBIN OPATH Y EVALU ATION RDW 12.7 % 11.0-1 5.0 Not Available [address], [address], 11/04/2023 16:50:39 10/30/19 11/04/2023 HEMOG LOBIN OPATH Y EVALU ATION hemoglobin A 97.3 % >96.0 Not Available [address], [address], 11/04/2023 16:50:39 10/30/19 24 11/04/2023 HEMOG LOBIN OPATH Y EVALU ATION hemoglobin F <1.0 % <2.0 Not Available [address], [address], 11/04/2023 16:50:39 10/30/19 24 11/04/2023 HEMOG LOBIN OPATH Y EVALU ATION hemoglobin A2 (quant) 2.7 % 2.0-3. 2 Not Available [address], [address], 11/04/2023 16:50:39 10/30/19 24 11/04/2023 HEMOG LOBIN OPATH Y EVALU ATION interpretati on Lizette l pheno type. Lizette l hemog lobin distr ibuti on, no HgS, HgC or other abnor mal hemog lobin obser nemesio. Not Available [address], [address], 11/04/2023 16:50:39 10/30/19 24 11/04/2023 MATER NAL SERUM AFP interpretati on: Scree n negat digna for open NTD. Not Available [address], [address], 11/04/2023 16:50:40 10/30/19 24 11/04/2023 MATER NAL SERUM AFP risk for ontd 1 IN 4 Not Available [address], [address], 11/04/2023 16:50:40 10/30/19 24 11/04/2023 MATER NAL SERUM AFP AFP, serum 35.5 NG/mL Not Available [place] [address] [id number] [place], [address], 11/04/2023 16:50:40 10/30/19 24 11/04/2023 MATER NAL SERUM AFP AFP MOM 1.42 Not Available [facility] [address] [address] [place], [address], 11/04/2023 16:50:40 10/30/19 24 11/04/2023 MATER NAL SERUM AFP comments: This patie nt's AD (antwon mated date of blaine teague) was used to calcu late the gesta marcela l age. The AFP test resul t indic ates that this patie nt is scree n negat digna for open NTD. It shoul d be noted that lizette l test resul ts can never guara ntee the of a lizette l baby and that 2-3% of [facility] rns have some type of physi massiel or menta l defec t, many of which are undet ectab le throu gh any known prena ezequiel diagn ostic techn ique. Not Available [facility] [address] [address] [place], [address], 11/04/2023 16:50:40 10/30/19 24 11/04/2023 MATER NAL SERUM AFP comment This is a scree aron test, not a diagn ostic test. This risk asses sment repor t is based in part on demog raphi c data provi ded by the order ing physi felicita. Pleas e notif y the labor atory promp tly if any data are incor rect. For nakul tance with recal culat ions, pleas e call your local [facility] . For nakul tance with inter preta tion of these resul ts, pleas e conta ct your Local [facility] yonis ic couns elor or call [phone]( [phone]). Inter preti ve Cutof fs Scree n Posit digan for Open NTD: > or = 2.50 adjus marycarmen MOM > or = 1.90 adjus marycarmen MOM for insul in-de pende nt diabe tics > or = 4.00 adjus marycarmen MOM for twins > or = 3.50 adjus marycarmen MOM for twins insul in-de pende nt diabe tics > or = 4.50 adjus marycarmen MOM for tripl ets For addit ional infor capri h[place] e refer to http: //[facility]old preicadoque stdia gnost ics.c om/fa q/FAQ 74v1 (This link is being provi ded for infor dean grace/ sharmila spicer purpo ses only. ) Not Available [address] [address] [place], [address], 11/04/2023 16:50:40 10/30/19 24 11/04/2023 MATER NAL SERUM AFP calc'd gestational age 15.7 weeks Not Available [address] [address] [place], [address], 11/04/2023 16:50:40 10/30/19 24 11/04/2023 MATER NAL SERUM AFP maternal weight 227 lbs Not Available [address] [address] [place], [address], 11/04/2023 16:50:40 10/30/19 24 11/04/2023 MATER NAL SERUM AFP est'd date of delivery 2024 Not Available [address] [address] [place], [address], 11/04/2023 16:50:40 10/30/19 24 11/04/2023 MATER NAL SERUM AFP ad determined by ULTRAS OUND Not Available [address] [address] [place], [address], 11/04/2023 16:50:40 10/30/19 24 11/04/2023 MATER NAL SERUM AFP mother's ethnic origin CAUCAS OLGA LIDIA Not Available [facility] [address] [address] [place], [address], 11/04/2023 16:50:40 10/30/19 24 11/04/2023 MATER NAL SERUM AFP number of fetuses 1 Not Available [address] [place], [address], 11/04/2023 16:50:40 10/30/19 24 11/04/2023 MATER NAL SERUM AFP insulin depend diabetic NO Not Available [address] [address] [place], [address], 11/04/2023 16:50:40 10/30/19 24 11/04/2023 MATER NAL SERUM AFP repeat specimen NO Not Available [address] [address] [place], [address], 11/04/2023 16:50:40 10/30/19 24 11/04/2023 MATER NAL SERUM AFP Hx of neural tube defects NO Not Available [place] [address] [address] [place], [address], 11/04/2023 16:50:40 10/30/19 24 11/04/2023 MATER NAL SERUM AFP prev down synd NO Not Available [address] [address] [place], [address], 11/04/2023 16:50:40 10/30/19 24 11/04/2023 MATER NAL SERUM AFP donor egg NO Not Available [address], [address], 11/04/2023 16:50:40 10/30/19 24 11/04/2023 MATER NAL SERUM AFP donor age: egg retrieval NOT GIVEN Not Available [address], [address], 11/04/2023 16:50:40 10/30/19 24 11/04/2023 MEASL ES AB (IGG) , IMMUN E STATU S measles Ab (IgG), immune status 44.30 AU/mL normal AU/mL Inter preta tion ----- ----- ----- ---- <13.5 0 Not consi stent with immun ity 13.50 -16.4 9 Equiv ocal >16.4 9 Consi stent with immun ity The prese nce of measl es IgG sugge sts immun izati on or past or curre nt infec tion with measl es virus . For addit ional infor capri houston e refer to http: //[facility].Que stDia gnost ics.c om/fa q/FAQ 162 (This link is being provi ded for infor matio nal/ educa marcela l purpo ses only. ) Not Available [facility] [address], [address], 11/04/2023 16:50:40 10/30/19 24 11/04/2023 ANTIB MILLA SCREE N, RBC W/REF L ID, TITER AND AG antibody screen, RBC w/refl id, titer and Ag NO ANTIBO DIES DETECT ED normal Refer ence range No antib odies detec marycarmen This assay is a scree aron test for the detec tion of red blood cell antib odies . The test is not to be used for pretr ansfu jodi scree aron or for the medic al manag ement of an alloi mmuni zed pregn geoff. Not Available [address], [address], 11/04/2023 16:50:41 10/30/19 24 11/04/2023 ABO GROUP AND RH TYPE ABO group A Not Available [facility] [address], [address], 11/04/2023 16:50:42 10/30/19 24 11/04/2023 ABO GROUP AND RH TYPE Rh type RH(D) POSITI VE For addit ional infor capri houston e refer to http: //[facility] n.Que stDia gnost ics.c om/fa q/FAQ 111 (This link is being provi ded for infor matio nal/ educa marcela l purpo ses only. ) Not Available [facility] [address] [place], [address], 11/04/2023 16:50:42 10/30/19 24 11/04/2023 CULTU RE, URINE , ROUTI NE culture, urine, routine SEE NOTE CULTU RE, URINE , ROUTI NE Micro Numbe r: [id number] Test Statu s: Final Speci men Sourc e: Urine Speci men Quali ty: Adequ ate Resul t: No Growt h Not Available [facility] [address] [place], [address], 11/04/2023 16:50:42 10/30/19 24 10/30/2023 [UNIT Y] ANEUP LOIDY NIPT fraction 6.1% normal Not Available [facility] [address] [place], [address], 11/06/2023 03:49:31 10/30/19 24 10/30/2023 [UNIT Y] ANEUP LOIDY NIPT Rh(D) nipt RhD DETECT ED normal Not Available [facility] [address] [place], [address], 11/06/2023 03:49:31 10/30/19 24 10/30/2023 [UNIT Y] ANEUP LOIDY NIPT sex chromosome aneuploidy NOT DETECT ED normal Not Available [facility] [address] [place], [address], 11/06/2023 03:49:31 10/30/19 24 10/30/2023 [UNIT Y] ANEUP LOIDY NIPT monosomy X LOW RISK <1 in 10,000 normal Not Available [facility] [address] [place], [address], 11/06/2023 03:49:31 10/30/19 24 10/30/2023 [UNIT Y] ANEUP LOIDY NIPT trisomy 13 LOW RISK <1 in 10,000 normal Not Available [facility] [address] [place], [address], 11/06/2023 03:49:31 10/30/19 24 10/30/2023 [UNIT Y] ANEUP LOIDY NIPT trisomy 18 LOW RISK <1 in 10,000 normal Not Available [facility] [address], [place], [address], 11/06/2023 03:49:31 10/30/19 24 10/30/2023 [UNIT Y] ANEUP LOIDY NIPT trisomy 21 LOW RISK <1 in 10,000 normal Not Available [facility] [address], [place], [address], 11/06/2023 03:49:31 10/30/19 24 10/30/2023 [UNIT Y] ANEUP LOIDY NIPT sex FEMALE normal Not Available [facility] [address] [facility], [place], [address], 11/06/2023 03:49:31 10/30/19 24 10/30/2023 [UNIT Y] ANEUP LOIDY NIPT gestation SINGLE TON normal Not Available [facility] [address] [facility], [place], [address], 11/06/2023 03:49:31 10/30/19 24 10/30/2023 [UNIT Y] ANEUP LOIDY NIPT for detailed report, see pdf See PDF normal Not Available [facility] [address] [facility], [place], [address], 11/06/2023 03:49:31 10/30/19 24 10/30/2023 [UNIT Y] ROSEANN ER BOBBYE N sickle cell disease/beta -thalassemia /hemoglobino pathies carrier screen NEGATI VE normal Not Available [facility] [address] [facility], [place], [address], 11/07/2023 19:17:51 10/30/19 24 10/30/2023 [UNIT Y] ROSEANN ER SCREE N alpha-thalas semia carrier screen NEGATI VE normal Not Available [facility] [address], [place], [address], 11/07/2023 19:17:51 10/30/19 24 10/30/2023 [UNIT Y] ROSEANN Segal cystic fibrosis carrier screen NEGATI VE normal Not Available [facility] [address], [place], [address], 11/07/2023 19:17:51 10/30/19 24 10/30/2023 [UNIT Y] ROSEANN Segal spinal muscular atrophy carrier screen NEGATI VE 2 SMN1 copies , SNP not presen t normal Not Available [facility] [address], [place], [address], 11/07/2023 19:17:51 10/30/19 24 10/30/2023 [UNIT Y] ROSEANN Segal for detailed report, see pdf See PDF normal Not Available [facility] [address], [place], [address], 11/07/2023 19:17:51 10/22/19 24 10/22/2023 US, trans vagin al No observ ation record ed. [email or web address] [address] [facility], [place], [address], 10/23/2023 09:44:29 Result Notes None recorded. Problems Name Problem SNOMED Code Status Onset Date Resolution Date Notes Provider Name and Address Organization Details Recorded Time [id number] Active 024 Didi Bentley null, [facility] 4 10:41:16 Body mass index 30+ - obesity 993511854 Active 024 GABY MADERA CJMARCELLA [address] [place], [address], [facility] 4 11:13:14 Body mass index 30+ - obesity 413447558 Active 024 GABY MADERA PAYTON [address] [place], [address], [place] [facility] 11:13:14 Problem Notes None recorded. Procedures Surgical History Date Name Laterality Status Provider Name and Address Organization Details Recorded Time 10/30/2023 Date of Last Pap Smear completed Didi Bentley [place] [facility] 10/30/2023 10:42:19 Imaging Results Imaging Date Name Status LastModified by Organization Details LastModified Time 10/22/2023 US, transvaginal completed [email or web address] [facility] [address], [place], [address], 10/23/2023 09:44:29 Procedure Notes None recorded. Medical Equipment None Reported. Allergies Allergen ID Allergen Name Allergen Category Reaction Reaction Severity Criticality Documentation Date Start Date Code Code System Note Provider Name and Address Organization Details Recorded Time [id number] amoxicill in medicatio n Not available Not available Not available 10/22/2023 723 RxNorm Not Available Not Available Not Available [id number] 2824e Product containin g penicilli n and antibioti c (product) medicatio n Not available Not available Not available 10/22/2023 [id number] SNOMED Not Available Not Available Not Available Medications Name Sig Start Date Stop Date Status Note LastModified by Organization Details LastModified Time aspirin 81 mg tablet,del ayed release Take 1 tablet every day by oral route. active Not Available Not Available No t Available Gummies active Not Available Not Available Not Available Vitals Date Recorded Body height Provider Name an d Address Organization Details Last Updated DateTime 10/22/2023 165.1 cm Arelis Cortes [facility] 10/22/2023 09:17:56 Date Recorded Body mass index (BMI) Body weight Provider Name and Address Organization Details Last Updated DateTime 10/22/2023 37.6 kg/m2 822582.88 g [facility] 10/22/2023 09:17:59 Date Recorded Body temperature Provider Name a nd Address Organization Details Last Updated DateTime 10/22/2023 98.7 [degF] [facility] 10/22/2023 09:18:05 Date Recorded Body height Provider Name an d Address Organization Details Last Updated DateTime 10/30/2023 165.1 cm Didi Sheree [place] [facility] 10/30/2023 10:40:16 Date Recorded Body mass index (BMI) Body weight Provider Name and Address Organization Details Last Updated DateTime 10/30/2023 37.5 kg/m2 650920.72 g Jarret Sparks [place] [facility] 10/30/2023 11:04:08 Date Recorded Body temperature Provider Name a nd Address Organization Details Last Updated DateTime 10/30/2023 97.7 [degF] Jarret Sparks [place] [facility] 10/30/2023 11:04:16 Date Recorded Systolic blood pressure Diastolic blood pressure Provider Name and Address Organization Details Last Updated DateTime 10/22/2023 100 mm[Hg] 60 mm[Hg] Radha Thomas [place] [facility] 10/22/2023 09:57:48 Date Recorded Systolic blood pressure Diastolic blood pressure Provider Name and Address Organization Details Last Updated DateTime 10/30/2023 118 mm[Hg] 72 mm[Hg] Jarret Sparks [place] [facility] 10/30/2023 11:03:59 Social History Question Answer Notes LastModified by Organizat ion Details LastModified Time Tobacco Smoking Status Never Smoker Radha Thomas null, [place] - [facility] 10/22/2023 09:56:31 What Is Your Level Of Alcohol Consumption? None Information not available 10/22/2023 If You Are , What Was Your Level Of Alcohol Consumption Prior To ? None Information not available 10/22/2023 Are You Blind Or Do You Have Difficulty Seeing? No Information not available 10/22/2023 Are You Currently Employed? Yes Information not available 10/30/2023 Are You Deaf Or Do You Have Serious Difficulty Hearing? No Information not available 10/22/2023 What Type Of Diet Are You Following? REGULAR Information not available 10/22/2023 How Many Children Do You Have? 0 Information not available 10/22/2023 Are There Any Occupational Health Risks Where You Work? No Information not available 10/30/2023 What Is Your Relationship Status? Domestic Partner Information not available 10/22/2023 Are You Sexually Active? Yes Information not available 10/22/2023 Do You Use Any Illicit Or Recreational Drugs? No Information not available 10/22/2023 Do You Or Have You Ever Used Any Other Forms Of Tobacco Or Nicotine? No Information not available 10/22/2023 Sex: Unknown Functional Status Question Answer Note LastModified by Organization D etails LastModified Time What is your exercise level? Moderate Information not available 10/22/2023 Mental Status None recorded. Family History Relationship Description Onset Age of this Age Resolved Age Notes LastModified by Organization Details LastModified Time Father No current problems or disability [email or web address] Not available 10:42:42 Mother No current problems or disability [email or web address] Not available 10:42:42 Notes:none Medical History Condition Response Other Cancer N High Blood Pressure N Colon Cancer N Cytomegalovirus N Hyperthyroidism N Herpes (HSV) N Breast Cancer N Blood Transfusion N MRSA N Lung Cancer N Hypothyroidism N Depression N Incontinence N Panic Attacks N Neurological Disorder N Deep Vein Thrombosis N Anxiety Disorder N Autoimmune disease N Arthritis N Tuberculosis/Positive PPD N Shingles N Polycystic Ovarian Syndrome N Infertility N Cervical Cancer N Chlamydia N Hematuria N Stroke N Varicosities N Crohn's Disease N Seasonal allergies N Alzheimer's/Dementia N COPD/Emphysema N HPV/Genital Warts N Endometriosis N IBS (Irritable Bowel Syndrome) N History of Abnormal Pap N High Cholesterol N Liver Disease N Kidney Infection N Fibromyalgia N Ulcer N Kidney Disease N HIV N Gallbladder disease N Sickle Cell Disease/Trait N Von Willebrand disease N ADD/ADHD N Eating Disorder N Anemia N Diabetes Mellitus (non-insulin dependent ) N Ovarian Problems N Multiple Sclerosis N Gonorrhea N Frequent Urinary Tract infections N Osteopenia N Headaches/migraines N GERD (reflux) N Ovarian Cancer N Diabetes (insulin dependent) N Seizures/Epilepsy N Breast Problems N Fibroids N Heart Attack N Asthma N Lupus N Endometrial Cancer N Rubella N Blood Clotting Disorder N Bipolar Disorder N Diabetes Mellitus (during ) N Ulcerative Colitis N Hepatitis N Heart Disease N Pulmonary Embolism N RPR N Chicken Pox N Osteoporosis N Gynecological History Statement/Question Response Flow Light Date of LMP 06/27/2023 Frequency of Cycle (Q days) 28 Date of Last Pap Smear 10/30/2023 Duration of Flow (days) 3 Current Control Method Age at Menarche 16 Obstetrics History GPAL:G 1 P 0 0 0 0 Past Encounters Encounter ID Performer Location Encounter Start Date Encounter Closed Date Diagnosis/Indication Diagnosis SNOMED-CT Code Diagnosis ICD10 Code Diagnosis Note [id number] CHEN DELUCA [address] [address] 10/22/2023 09:01:54 10/22/2023 12:43:03 test positive [id number] Z32.01 Pt presents today for a confirmati on of visit. has not been previously confirmed at another healthcare facility. Pt voiced that she is happy about this . TVUS today showed:IUP with Cardiac Activity. AD based on this US. AD: 04/17/2024 estational Age: 14w 4dFHT: 141 First trimester teaching provided.- --Foods and activities to avoid---Sa fe meds---Lamont entation to practice-- -Delivery locations- --SARI visit progressio n---Prenat al vitamins daily--- Toxoplasmo sis precaution s reviewed-- -S/S of SAB reviewed and when to seek care RTC 1 weeks for 1st OB, Labs, and Physical. --BMI: 37.6 [id number] [facility]O [facility] [address] [place] [address] 10/30/2023 10:33:07 10/30/2023 15:44:40 screening 399484329 Z36.89 Z36.0 Primigravida 976988013 Z 34.02 Carrier de tection, molecular genetics 0452305 Z14.8 Body mass index 30+ - obesity 166841055 Z68.37 Pre BMI 37.6 Gestation period, 15 weeks 6166546 Z3A.15 Guide: Given and reviewed. Toxoplasmo sis precaution s reviewed. Reviewed office visit schedule during . Reviewed Quickening and normal FHTs. Health Concerns Section Related Observation LastModified by Organization Harman [email or web address] LastModified Time None Recorded Concern Status LastModified by Organization Details LastModified Time None Recorded Advance Directives Directive None Recorded Payers Encounter Date Sequence Insurance Name Policy Number Policy Jolly Covered Member ID Jolly Member ID Guarantor Name 10/22/2023 2 [place]IRA Mazariegos [id number] Yvrose Mazariegos 10/30/2023 2 [place] Mazariegos [id number] Yvrose Mazariegos Notes Date Note Type Note Provider Name and Address Organization Details Recorded Time 10/22/2023 text/html Yvrose is a 23 year old woman. Pt is here for confirmation. Per the patient her last LMP was on 06/27/23, however per the patient it was not a normal period her previous LMP is 05/27/23.Per the patient she tested positive for a home test on 09/07/23.Patient [facility] she [facility] get her care here. Patient is aware that she needs pap smear and would like to have it done at her next visit. CHEN DELUCA [address] [place], [address], [facility] [employer] [facility] 10/22/2023 10:33:35 10/30/2023 text/html Yvrose is here today for a routine OB visit. She is currently at 17.6 weeks gestation. She has no complaints or questions. She is taking vitamins. She has not felt movement. She denies the presence of vaginal bleed, leaking fluid, abdominal cramps, nausea, vomiting. There are no identifiable risk factors for pre-term labor. GABY MADERA, REYNALDO-MARCELLA [address] [place], [address], [facility] [employer] [facility] 10/30/2023 11:23:54 OBGyn Episode Ob Episode Information Episode Created Date Number of Fetuses Patient Bloodtype Patient rh Status Prepregnancy Weight lbs Domestic Partner Domestic Partner Phone Father Name Film Process Operator Status 10/30/19 1 A Positive OPEN Fetus Data First Name Last Name Admitted to NICU Weight (g) Sex Living Outcome Pediatric Complications Fetus ID Race Codes Race Delivery Type Problems Problem Notes PAP Problem Name Start Date End Date Resolution Snomed Code Not e Body mass index 30+ - obesity 10/30/2023 [id number] Ad Calculation Initial Ad Date Initial Exam Date Initial Exam Provider Initial Ultrasound Date Last Menstrual Period Date Ultra Sound Weeks Gestation 10/22/2023 10/30/2023 0 Eighteen To Twenty Week Ad Update Ultra Sound Date Fundal Height At Umbil Quickening Date Ultra Sound Latest Weeks Gestation Final Ad Confirmed By Final Ad Confirmed Date Final Ad Date Ultra Sound Latest Days Gestation 0 [email or web address] 10/30/2023 04/17/19 25 0 Pre- Flowsheet Flowsheet Date 10/30/2023 Rich Score Blood Edema Fundus Height Fundus Units Glucose Ketones Leukocytes Nitrite Labor Signs Protein Cervic Dilation Cervic Effacement Cervic Station none Type Weight in lbs Pre/Post Dialysis Refused With clothes [id number] BP Diastolic BP Location Tested BP Systolic BP Type 72 118 sitting Fetus Heart Rate Present A 152 Present Fetus Movement Comments NOB labs, UNITY, and Materna l Serum AFP collected today. Low dose aspiring recommended. Pre- BMI: 37.5. Will need PAP . Menstrual History Last Menstrual Date Menses Monthly On Bcp Conception Prior Menses Frequency Hcg Plus Date Menarche Onset Age Genetic Screening And Infection History Question Response Note Patient's Age Will Be 35 Years Or Older At Estim ated Date of Delivery false Personal or Family History o f Neural Tube Defect (Meningomyelocele, Spina Bifida, Or Anencephaly) false Personal or Family History of Congenital Heart D efect false Maternal Metabolic Disorder (eg, Type 1 Diabetes , PKU) false Recurrent Loss, Or A Stillbirth false Patient Or Partner Has History Of Genital Herpes false Prior GBS-infected child false History of HIV false History of Hepatitis false Genetic Carrier Screen positive false Delivery Information Delivery Date Delivery Type Labor Anesthesia Weeks Gestation Incision Type Labor Labor Length Hrs Delivered By Post Complications Tubal Sterilization Discharge Date Comments Discharge Information Feeding Method Contraceptive Method Maternal HG B and HCT Levels
== END 2024-04-04 23:34 | disposition home or self-care (01) ==
PROVIDERS: Admitting Provider Obstetrics & Gynecology Gynecology; PCP Physician Assistant; Visit Provider Obstetrics & Gynecology Gynecology
DX: O47.1 False labor at or after 37 completed weeks of gestation (principal); Z3A.38 38 weeks gestation of pregnancy
CPT/HCPCS: G0378; G0379

== ENCOUNTER 2024-04-13 09:57 | Inpatient (IN) | payer MEDICAID, SELFPAY ==
[2024-04-13] VITALS (160 sets, daily range): BP systolic 76–159; BP diastolic 36–109; PULSE 66–164; TEMP 36.1–36.6; O2SAT 74–100; BMI 38.3
--- OUTSIDE RECORDS SUMMARY | 2024-04-13 11:09 | XMS_ITS | Clinical Summary ---
Author Organization [facility] Address [address] [place] [phone] Phone Care Team Providers Care Aircraft Engine Assembler Name Role Phone Unavailable Primary Care Provider [...]
--- OUTSIDE RECORDS SUMMARY | 2024-04-13 11:09 | XMS_ITS | Patient Health Summary ---
Author Organization [facility] Address [address] [place] [address] Care Team Providers Care Managed Care Specialist Name Role Phone Unavailable Primary Care Provider Unavailabl e Note from [facility],non-owned Affiliates and Associated Physician Practices is amultiple site organization consisting of ambulatory clinics and hospital sitesin [place], [place], [place] and [place]. This disclosure is being madepursuant to the Care Everywhere program and may not contain all information available regarding this patient. 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
--- OUTSIDE RECORDS SUMMARY | 2024-04-13 11:09 | XMS_ITS | Clinical Summary ---
Author Organization [facility] Address [address] [place] [address] Care Team Providers Care Lasting Floorworker Name Role Phone Unavailable Primary Care Provider Unavailabl e Source Comments [facility],non-owned Affiliates and Associated Physician Practices is amultiple site organization consisting of ambulatory clinics and hospital sitesin [place], [place], [place] and [place]. This disclosure is being madepursuant to the Care Everywhere program and may not contain all information available regarding this patient. Last updated 17.[facility] [employer] [facility] Allergies Active Allergy Reactions Criticality Noted Date [...] track( 9:30 AM CDT) No Magi Hernandez APRN-CARE ASSOCIATE Use safety retraint in car Lifestyle On track( 9:30 AM CDT) No Estee Trevino, JOSE
--- OUTSIDE RECORDS SUMMARY | 2024-04-13 11:09 | XMS_ITS | Referral Summary ---
Author Organization [facility] Address [address] [place] [address] Care Team Providers Care Watch And Clock Maker And Repairer Name Role Phone Unavailable Primary Care Provider Unavailabl e Source Comments [facility],non-owned Affiliates and Associated Physician Practices is amultiple site organization consisting of ambulatory clinics and hospital sitesin [place], [place], [place] and [place]. This disclosure is being madepursuant to the Care Everywhere program and may not contain all information available regarding this patient. Last updated 17.[employer] [facility] Allergies Active Allergy Reactions Criticality Noted Date [...] track( 9:30 AM CDT) No Magi Hernandez APRN-PROTOTYPE FABRICATOR Use safety retraint in car Lifestyle On track( 9:30 AM CDT) No Estee Trevino, JOSE Administered Medications
--- OUTSIDE RECORDS SUMMARY | 2024-04-13 11:09 | XMS_ITS | Data Portability ---
Author Organization [facility] [employer] , [facility] Address [address] [place] [address] Assessment Encounter Date Assessment Date Assessment LastModified by Organization Details LastModified Time 10/30/2023 10/30/2023 Pt comes in today for a New/First OB visit. AD: 04/17/2024 based on US -- PMH:No PMH -- Medications: Taking daily PNV, not taking any other medications -- Mom/Sisters with hx of Pre-Eclampsia: Mom -- History of Genital HSV: Denies -- Genetic Questions in OB Episode Done -- Accepts [facility]. Would like to know gender. Discussed logging on to the [facility] portal to find Gender Results POC -- NOB labs done today -- Accepts [facility] -- PAP -- Low dose aspirin recommended -- Pre- BMI: 37.5 -- RTC 3 weeks [email or web address] Not available 10/30/2023 11:23:27 Plan of Treatment Reminders Order Date Submit Date Provider Last Modified By Organization Details Last Modified Time Details Appointments None recorded. Lab test, urine 2023 024 [email or web address] [facility], [address] [place], [address], 4 10:33:34 genetic screen, unspecified specimen 2023 024 SAMMIE Allen, [address], [place], [address], 4 19:17:51 hemoglobin A1c, QN, blood 2023 024 SAMMIE Briceño Wilfredo, [address] [place], [address], 4 11:15:01 abo group + rh type, blood 2023 [employer] [facility], [address] [place], [address], 4 16:50:42 CBC w/ auto diff 2023 [facility], [address] [place] [address], [address], 4 12:02:00 CT + NG DNA, PCR, unspecified specimen 2023 [facility], [address] [place] [address], [address], 4 11:51:36 drug of abuse panel, urine 2023 [facility], [address] [place], [address], 4 16:18:00 obstetric screen + HIV, serum or blood 2023 [facility] [address], [address] [place], [address], 4 14:47:41 measles igg Ab, serum 2023 [facility], [address] [place], [address], 4 16:50:41 culture, urine 2023 [facility], [address] [place], [address], 4 16:50:42 varicella-z anam igg Ab screen, serum 2023 024 [facility], [address] [place], [address], 4 16:50:39 hemoglobino abran profile, blood 2023 [employer] [facility], [address] [place], [address], 4 16:50:39 antibody screen, serum or plasma 2023 [employer] [facility], [address] [place], [address], 4 16:50:41 aneuploidy risk, chromosome specific circulating cell free (ccf) DNA, maternal serum 2023 [facility], [facility], [place], [address], 4 03:49:31 afp (alpha-feto protein) panel, maternal screen, serum 2023 [employer] [facility], [address] [place], [address], 4 16:50:40 Referral None recorded. Procedures None recorded. Surgeries None recorded. Imaging US, transvagina l 2023 RENSSELAER Not available 15:22:46 Medication Orders Adult Low Dose Aspirin 81 mg tablet,lane yed release 2023 [id number], [address], [place], [place], [id number], 4 11:18:08 Patient TargetsNo targets recorded. Patient Instructions Encounter Date Encounter Id Patient Instructions Last Modified By Organization Details Last Modified Time 10/22/2023 [id number] [facility] OB Booklet [email or web address] Not available 10/22/2023 10:33:32 Reason for Referral None Reported. Results Created Date Observation Date Name Description Value Unit Range Abnormal Flag Note LastModifiedBy Organization Detail LastModifiedTime 10/22/19 24 10/22/2023 pregn geoff test, urine HCG positi ve Not Available [facility] [address] [facility], [place], [address], 10/22/2023 09:20:20 10/30/19 24 10/31/2023 HEMOG LOBIN [...] absen ce of diabe kenia Not Available [facility] [address] [place], [address], 10/31/2023 11:15:01 10/30/19 24 10/31/2023 CT/NG chlamydia trachomatis CT neg negati ve normal This repor t is inten ded for us in clini massiel monit oring and manag ement of patie nts. It is not inten ded for use in medic al-le gal appli catio n. Not Available [facility] [address] [place], [address], 10/31/2023 11:51:36 10/30/19 24 10/31/2023 CT/NG neisseria gonorrhoeae GC neg negati ve normal This repor t is inten ded for us in clini massiel monit oring and manag ement of patie nts. It is not inten ded for use in medic al-le gal appli catio n. Not Available [facility] [address] [place], [address], 10/31/2023 11:51:36 10/30/19 24 10/31/2023 CBC (INCL UDES DIFF/ PLT) WBC 10.6 thous and/u L 4.0 - 9.8 high Not Available [facility] [address] [place], [address], 10/31/2023 12:02:00 10/30/19 24 10/31/2023 CBC (INCL UDES DIFF/ PLT) RBC 4.3 ryann on/uL 3.9 - 4.9 normal Not Available [address], [address], 10/31/2023 12:02:00 10/30/19 24 10/31/2023 CBC (INCL UDES DIFF/ PLT) hemoglobin 12.4 g/dL 11.8 - 14.8 normal Not Available [address], [address], 10/31/2023 12:02:00 10/30/1910/31/2023 CBC (INCL UDES DIFF/ PLT) hematocrit 37.7 % 35.5 - 44.0 normal Not Available [address], [address], 10/31/2023 12:02:00 10/30/1910/31/2023 CBC (INCL UDES DIFF/ PLT) MCV 88.3 fL 82.0 - 99.0 normal Not Available [address], [address], 10/31/2023 12:02:00 10/30/1910/31/2023 CBC (INCL UDES DIFF/ PLT) MCH 29.0 pg 27.2 - 32.6 normal Not Available [address], [address], 10/31/2023 12:02:00 10/30/1910/31/2023 CBC (INCL UDES DIFF/ PLT) MCHC 32.9 g/dL 31.5 - 35.5 normal Not Available [address], [address], 10/31/2023 12:02:00 10/30/1910/31/2023 CBC (INCL UDES DIFF/ PLT) RDW-CV 13.0 % 11.5 - 14.5 normal Not Available [address], [address], 10/31/2023 12:02:00 10/30/19 24 10/31/2023 CBC (INCL UDES DIFF/ PLT) platelet 204 thous and/u L 140 - 350 normal Not Available [address], [address], 10/31/2023 12:02:00 10/30/19 24 10/31/2023 CBC (INCL UDES DIFF/ PLT) MPV 11.9 fL 9.3 - 12.4 normal Not Available [address], [address], 10/31/2023 12:02:00 10/30/1910/31/2023 CBC (INCL UDES DIFF/ PLT) absolute neutrophil 8.45 thous and/u L 1.90 - 7.00 high Not Available [address], [address], 10/31/2023 12:02:00 10/30/19 24 10/31/2023 CBC (INCL UDES DIFF/ PLT) absolute lymphocyte 1.56 thous and/u L 0.70 - 4.50 normal Not Available [address], [address], 10/31/2023 12:02:00 10/30/19 24 10/31/2023 CBC (INCL UDES DIFF/ PLT) absolute monocyte 0.49 thous and/u L 0.10 - 1.30 normal Not Available [address], [address], 10/31/2023 12:02:00 10/30/19 24 10/31/2023 CBC (INCL UDES DIFF/ PLT) absolute eosinophil 0.07 thous and/u L <0.70 normal Not Available [address], [address], 10/31/2023 12:02:00 10/30/19 24 10/31/2023 CBC (INCL UDES DIFF/ PLT) absolute basophil 0.04 thous and/u L <0.20 normal Not Available [address], [address], 10/31/2023 12:02:00 10/30/19 24 10/31/2023 CBC (INCL UDES DIFF/ PLT) absolute immature granulocyte 0.02 thous and/u L <0.03 normal Not Available [address], [address], 10/31/2023 12:02:00 10/30/19 24 10/31/2023 OB PANEL - STD BLOOD WORK hep BS Ag Non-Re active non-re active normal Not Available [address], [address], 10/31/2023 14:47:41 10/30/19 24 10/31/2023 OB PANEL - STD BLOOD WORK hep C Ab Non-Re active non-re active normal Not Available [address], [address], 10/31/2023 14:47:41 10/30/19 24 10/31/2023 OB PANEL - STD BLOOD WORK HIV 1/2 Ag/Ab Non-Re active non-re active normal Not Available [address], [address], 10/31/2023 14:47:41 10/30/19 24 10/31/2023 OB PANEL - STD BLOOD WORK syphilis Ab Non-Re active non-re active normal Not Available [address], [address], 10/31/2023 14:47:41 10/30/19 24 10/31/2023 OB PANEL [...] the Rubel la virus . Not Available [facility] [address] [place], [address], 10/31/2023 14:47:41 10/30/19 24 11/04/2023 DRUG ABUSE PANEL 7 W/CON FIRM amphetamines Negati ve negati ve normal Not Available [facility] [address] [place], [address], 11/04/2023 16:18:00 10/30/19 24 11/04/2023 DRUG ABUSE PANEL 7 W/CON FIRM barbiturates Negati ve negati ve normal Not Available [facility] [address] [place] [address], [address], 11/04/2023 16:18:00 10/30/19 24 11/04/2023 DRUG ABUSE PANEL 7 W/CON FIRM benzodiazepi juanita Negati ve negati ve normal Not Available [facility] [address] [place] [address], [address], 11/04/2023 16:18:00 10/30/19 24 11/04/2023 DRUG ABUSE PANEL 7 W/CON FIRM cocaine metabolites Negati ve negati ve normal Not Available [facility] [address] [place] [address], [address], 11/04/2023 16:18:00 10/30/19 24 11/04/2023 DRUG ABUSE PANEL 7 W/CON FIRM cannabinoids Negati ve negati ve normal Not Available [facility] [address] [place], [address], 11/04/2023 16:18:00 10/30/19 24 11/04/2023 DRUG ABUSE PANEL 7 W/CON FIRM methadone Negati ve negati ve normal Not Available [facility] [address] [place] [address], [address], 11/04/2023 16:18:00 10/30/19 24 11/04/2023 DRUG ABUSE PANEL 7 W/CON FIRM opiates Negati ve negati ve normal Not Available [facility] [address] [place], [address], 11/04/2023 16:18:00 10/30/19 24 11/04/2023 DRUG ABUSE PANEL 7 W/CON FIRM creatinine, urine 96 mg/dL 20 - 275 normal Not Available [facility] Wilfred[address] [place], [address], 11/04/2023 16:18:00 10/30/19 24 11/04/2023 VARIC JUHI ZOSTE R VIRUS ANTIB MILLA (IGG) varicella zoster virus antibody (IgG) 151.70 index low Index Inter preta tion ----- ---- ----- ----- ----- ----- -- <135. 00 Negat digna - Antib milal not detec marycarmen 135.0 0 - 164.9 [...] Immun ity Scree n, ACIF. Not Available [facility] [address] [place] [address], [address], 11/04/2023 16:50:39 10/30/19 24 11/04/2023 HEMOG LOBIN OPATH Y EVALU ATION red blood cell count 4.26 ryann on/uL 3.80-5 .10 Not Available [address] [address] [place], [address], 11/04/2023 16:50:39 10/30/19 24 11/04/2023 HEMOG LOBIN OPATH Y EVALU ATION hemoglobin 12.4 g/dL 11.7-1 5.5 Not Available [address], [address], 11/04/2023 16:50:39 10/30/19 24 11/04/2023 HEMOG LOBIN OPATH Y EVALU ATION hematocrit 38.5 % 35.0-4 5.0 Not Available [address] [address] [place], [address], 11/04/2023 16:50:39 10/30/19 24 11/04/2023 HEMOG LOBIN OPATH Y EVALU ATION MCV 90.4 fL 80.0-1 00.0 Not Available [address], [address], 11/04/2023 16:50:39 10/30/19 24 11/04/2023 HEMOG LOBIN OPATH Y EVALU ATION MCH 29.1 pg 27.0-3 3.0 Not Available [address] [address] [place], [address], 11/04/2023 16:50:39 10/30/19 24 11/04/2023 HEMOG LOBIN OPATH Y EVALU ATION RDW 12.7 % 11.0-1 5.0 Not Available [address], [address], 11/04/2023 16:50:39 10/30/19 11/04/2023 HEMOG LOBIN OPATH Y EVALU ATION hemoglobin A 97.3 % >96.0 Not Available [address], [address], 11/04/2023 16:50:39 10/30/19 24 11/04/2023 HEMOG LOBIN OPATH Y EVALU ATION hemoglobin F <1.0 % <2.0 Not Available [address], [address], 11/04/2023 16:50:39 10/30/19 24 11/04/2023 HEMOG LOBIN OPATH Y EVALU ATION hemoglobin A2 (quant) 2.7 % 2.0-3. 2 Not Available [address], [address], 11/04/2023 16:50:39 10/30/19 24 11/04/2023 HEMOG LOBIN OPATH Y EVALU ATION interpretati on Lizette l pheno type. Lizette l hemog lobin distr ibuti on, no HgS, HgC or other abnor mal hemog lobin obser nemesio. Not Available [address], [address], 11/04/2023 16:50:39 10/30/19 24 11/04/2023 MATER NAL SERUM AFP interpretati on: Scree n negat digna for open NTD. Not Available [address], [address], 11/04/2023 16:50:40 10/30/19 24 11/04/2023 MATER NAL SERUM AFP risk for ontd 1 IN 4 Not Available [address], [address], 11/04/2023 16:50:40 10/30/19 24 11/04/2023 MATER NAL SERUM AFP AFP, serum 35.5 NG/mL Not Available [id number] [place], [address], 11/04/2023 16:50:40 10/30/19 24 11/04/2023 MATER NAL SERUM AFP AFP MOM 1.42 Not Available [facility] [address] [address] [place], [address], 11/04/2023 16:50:40 10/30/19 24 11/04/2023 MATER NAL [...] lizette l baby and that 2-3% of doctors hospital rns have some type of physi massiel or menta l defec t, many of which are undet ectab le throu gh any known prena ezequiel diagn ostic techn ique. Not Available [facility] [address] [address] [place], [address], 11/04/2023 16:50:40 10/30/19 24 11/04/2023 MATER NAL [...] s yonis ic couns elor or call [phone] INFO( [phone]). Inter preti ve Cutof fs Scree n Posit digna for Open NTD: > or = 2.50 [...] infor capri [place] e refer to http: //[facility] arnold preciadoque stdia gnost ics.c om/fa q/FAQ 74v1 (This link is being provi ded for infor dean grace/ sharmila spicer purpo ses only. ) Not Available [address] [address] [place], [address], 11/04/2023 16:50:40 10/30/19 24 11/04/2023 MATER NAL SERUM AFP calc'd gestational age 15.7 weeks Not Available [address] [address] [place], [address], 11/04/2023 16:50:40 10/30/19 24 11/04/2023 MATER NAL SERUM AFP maternal weight 227 lbs Not Available [address] [address] [place], [address], 11/04/2023 16:50:40 10/30/19 24 11/04/2023 MATER NAL SERUM AFP est'd date of delivery 2024 Not Available [address] [address] [place], [address], 11/04/2023 16:50:40 10/30/19 24 11/04/2023 MATER NAL SERUM AFP ad determined by ULTRAS OUND Not Available [address] [address] [place], [address], 11/04/2023 16:50:40 10/30/19 24 11/04/2023 MATER NAL SERUM AFP mother's ethnic origin CAUCAS OLGA LIDIA Not Available [facility] [address] [address] [place], [address], 11/04/2023 16:50:40 10/30/19 24 11/04/2023 MATER NAL SERUM AFP number of fetuses 1 Not Available [address] [place], [address], 11/04/2023 16:50:40 10/30/19 24 11/04/2023 MATER NAL SERUM AFP insulin depend diabetic NO Not Available [address] [address] [place], [address], 11/04/2023 16:50:40 10/30/19 24 11/04/2023 MATER NAL SERUM AFP repeat specimen NO Not Available [address] [address] [place], [address], 11/04/2023 16:50:40 10/30/19 24 11/04/2023 MATER NAL SERUM AFP Hx of neural tube defects NO Not Available [address] [address] [place], [address], 11/04/2023 16:50:40 10/30/19 24 11/04/2023 MATER NAL SERUM AFP prev down synd NO Not Available [address] [address] [place], [address], 11/04/2023 16:50:40 10/30/19 24 11/04/2023 MATER NAL SERUM AFP donor egg NO Not Available [address], [address], 11/04/2023 16:50:40 10/30/19 24 11/04/2023 MATER NAL SERUM AFP donor age: egg retrieval NOT GIVEN Not Available [address], [address], 11/04/2023 16:50:40 10/30/19 24 11/04/2023 MEASL ES [...] capri [place] e refer to http: //[facility].Que stDia gnost ics.c om/fa q/FAQ 162 (This link is being provi ded for infor matio nal/ educa marcela l purpo ses only. ) Not Available [facility] [address], [address], 11/04/2023 16:50:40 10/30/19 24 11/04/2023 ANTIB MILLA [...] alloi mmuni zed pregn geoff. Not Available [address], [address], 11/04/2023 16:50:41 10/30/19 24 11/04/2023 ABO GROUP AND RH TYPE ABO group A Not Available [facility] [address], [address], 11/04/2023 16:50:42 10/30/19 24 11/04/2023 ABO GROUP AND RH TYPE Rh type RH(D) POSITI VE For addit ional infor capri [place] e refer to http: //[facility] n.Que stDia gnost ics.c om/fa q/FAQ 111 (This link is being provi ded for infor matio nal/ educa marcela l purpo ses only. ) Not Available [facility] [address] [place], [address], 11/04/2023 16:50:42 10/30/19 24 11/04/2023 CULTU RE, URINE , ROUTI NE culture, urine, routine SEE NOTE CULTU RE, URINE , ROUTI NE Micro Numbe r: [id number] Test Statu s: Final Speci men Sourc e: Urine Speci men Quali ty: Adequ ate Resul t: No Growt h Not Available [facility] [address] [place], [address], 11/04/2023 16:50:42 10/30/19 24 10/30/2023 [UNIT Y] ANEUP LOIDY NIPT fraction 6.1% normal Not Available [facility] [address] [place], [address], 11/06/2023 03:49:31 10/30/19 24 10/30/2023 [UNIT Y] ANEUP LOIDY NIPT Rh(D) nipt RhD DETECT ED normal Not Available [facility] [address] [place], [address], 11/06/2023 03:49:31 10/30/19 24 10/30/2023 [UNIT Y] ANEUP LOIDY NIPT sex chromosome aneuploidy NOT DETECT ED normal Not Available [facility] [address] [place], [address], 11/06/2023 03:49:31 10/30/19 24 10/30/2023 [UNIT Y] ANEUP LOIDY NIPT monosomy X LOW RISK <1 in 10,000 normal Not Available [facility] [address] [place], [address], 11/06/2023 03:49:31 10/30/19 24 10/30/2023 [UNIT Y] ANEUP LOIDY NIPT trisomy 13 LOW RISK <1 in 10,000 normal Not Available [facility] [address] [place], [address], 11/06/2023 03:49:31 10/30/19 24 10/30/2023 [UNIT Y] ANEUP LOIDY NIPT trisomy 18 LOW RISK <1 in 10,000 normal Not Available [facility] [address], [place], [address], 11/06/2023 03:49:31 10/30/19 24 10/30/2023 [UNIT Y] ANEUP LOIDY NIPT trisomy 21 LOW RISK <1 in 10,000 normal Not Available [facility] [address], [place], [address], 11/06/2023 03:49:31 10/30/19 24 10/30/2023 [UNIT Y] ANEUP LOIDY NIPT sex FEMALE normal Not Available [facility] [address] [facility], [place], [address], 11/06/2023 03:49:31 10/30/19 24 10/30/2023 [UNIT Y] ANEUP LOIDY NIPT gestation SINGLE TON normal Not Available [facility] [address] [facility], [place], [address], 11/06/2023 03:49:31 10/30/19 24 10/30/2023 [UNIT Y] ANEUP LOIDY NIPT for detailed report, see pdf See PDF normal Not Available [facility] [address] [facility], [place], [address], 11/06/2023 03:49:31 10/30/19 24 10/30/2023 [UNIT Y] ROSEANN ER BOBBYE N sickle cell disease/beta -thalassemia /hemoglobino pathies carrier screen NEGATI VE normal Not Available [facility] [address] [facility], [place], [address], 11/07/2023 19:17:51 10/30/19 24 10/30/2023 [UNIT Y] ROSEANN ER SCREE N alpha-thalas semia carrier screen NEGATI VE normal Not Available [facility] [address], [place], [address], 11/07/2023 19:17:51 10/30/19 24 10/30/2023 [UNIT Y] ROSEANN Segal cystic fibrosis carrier screen NEGATI VE normal Not Available [facility] [address], [place], [address], 11/07/2023 19:17:51 10/30/19 24 10/30/2023 [UNIT Y] ROSEANN Segal spinal muscular atrophy carrier screen NEGATI VE 2 SMN1 copies , SNP not presen t normal Not Available [facility] [address], [place], [address], 11/07/2023 19:17:51 10/30/19 24 10/30/2023 [UNIT Y] ROSEANN Segal for detailed report, see pdf See PDF normal Not Available [facility] [address], [place], [address], 11/07/2023 19:17:51 10/22/19 24 10/22/2023 US, trans vagin al No observ ation record ed. [email or web address] [address] [facility], [place], [address], 10/23/2023 09:44:29 Result Notes None recorded. Problems Name Problem SNOMED Code Status Onset Date Resolution Date Notes Provider Name and Address Organization Details Recorded Time 88742525 Active 024 Didi Bentley null, [facility] [facility] 4 10:41:16 Body mass index 30+ - obesity 550688304 Active 024 GABY MADERA CJMARCELLA [address] [place], [address], [employer] [facility] 4 11:13:14 Body mass index 30+ - obesity 700047664 Active 024 GABY MADERA PAYTON [address] [place], [address], [place] [employer] IV 11:13:14 Problem Notes None recorded. Procedures Surgical History Date Name Laterality Status Provider Name and Address Organization Details Recorded Time 10/30/2023 Date of Last Pap Smear completed Didi Bentley DC [employer] [facility] 10/30/2023 10:42:19 Imaging Results Imaging Date Name Status LastModified by Organization Details LastModified Time 10/22/2023 US, transvaginal completed [email or web address] [address], [place], [address], 10/23/2023 09:44:29 Procedure Notes None recorded. Medical Equipment None Reported. Allergies Allergen ID Allergen Name Allergen Category Reaction Reaction Severity Criticality Documentation Date Start Date Code Code System Note Provider Name and Address Organization Details Recorded Time [id number] 5889618u0 2824e amoxicill in medicatio n Not available Not available Not available 10/22/2023 723 RxNorm Not Available Not Available Not Available [id number] [id number] 2824e Product containin g penicilli n and antibioti c (product) medicatio n Not available Not available Not available 10/22/2023 76949 05 SNOMED Not Available Not Available Not [...] Updated DateTime 10/22/2023 165.1 cm Arelis Cortes [employer] 10/22/2023 09:17:56 Date Recorded Body mass index (BMI) Body weight Provider Name and Address Organization Details Last Updated DateTime 10/22/2023 37.6 kg/m2 473287.88 g [facility] [address] [email or web address] 10/22/2023 09:17:59 Date Recorded Body temperature Provider Name a nd Address Organization Details Last Updated DateTime 10/22/2023 98.7 [degF] [facility] 10/22/2023 09:18:05 Date Recorded Body height Provider Name an d Address Organization Details Last Updated DateTime 10/30/2023 165.1 cm Didi Sheree [place] [facility] 10/30/2023 10:40:16 Date Recorded Body mass index (BMI) Body weight Provider Name and Address Organization Details Last Updated DateTime 10/30/2023 37.5 kg/m2 874389.72 g Jarret Sparks [place] [facility] 10/30/2023 11:04:08 Date Recorded Body temperature Provider Name a nd Address Organization Details Last Updated DateTime 10/30/2023 97.7 [degF] Jarret Sparks [place] [facility] 10/30/2023 11:04:16 Date Recorded Systolic blood pressure Diastolic blood pressure Provider Name and Address Organization Details Last Updated DateTime 10/22/2023 100 mm[Hg] 60 mm[Hg] Radha Thomas [place] - [facility] 10/22/2023 09:57:48 Date Recorded Systolic blood pressure Diastolic blood pressure Provider Name and Address Organization Details Last Updated DateTime 10/30/2023 118 mm[Hg] 72 mm[Hg] Jarret Sparks [place] - [facility] 10/30/2023 11:03:59 Social History Question Answer Notes LastModified by Organizat ion Details LastModified Time Tobacco Smoking Status Never Smoker Radha Thomas null, [place] - [facility] 10/22/2023 09:56:31 What [...] Colon Cancer N Cytomegalovirus N Hyperthyroidism N MRSA N Breast Cancer N Herpes (HSV) N Blood Transfusion N Lung Cancer N Depression N Hypothyroidism N Incontinence N Panic Attacks N Neurological Disorder N Deep Vein Thrombosis N Anxiety Disorder N Autoimmune disease N Arthritis N Tuberculosis/Positive PPD N Shingles N Polycystic Ovarian Syndrome N Infertility N Cervical Cancer N Hematuria N Chlamydia N Stroke N Varicosities N Seasonal allergies N Crohn's Disease N Alzheimer's/Dementia N COPD/Emphysema N Endometriosis N HPV/Genital Warts N IBS (Irritable Bowel Syndrome) N History of Abnormal Pap N High Cholesterol N Liver Disease N Kidney Infection N Fibromyalgia N Ulcer N Kidney Disease N HIV N Gallbladder disease N Sickle Cell Disease/Trait N Von Willebrand disease N ADD/ADHD N Eating Disorder N Anemia N Diabetes Mellitus (non-insulin dependent ) N Multiple Sclerosis N Ovarian Problems N Gonorrhea N Frequent Urinary Tract infections N Osteopenia N Headaches/migraines N GERD (reflux) N Ovarian Cancer N Diabetes (insulin dependent) N Seizures/Epilepsy N Breast Problems N Fibroids N Asthma N Heart Attack N Lupus N Endometrial Cancer N Rubella [...] SNOMED-CT Code Diagnosis ICD10 Code Diagnosis Note [id number] CHEN DELUCA [address] [address] 10/22/2023 09:01:54 10/22/2023 12:43:03 test positive [id number] Z32.01 Pt presents today for a confirmati [...] 1st OB, Labs, and Physical. --BMI: 37.[address] [id number]O [facility] [address] [place] [address] 10/30/2023 10:33:07 10/30/2023 15:44:40 screening 574565011 Z36.89 Z36.0 Primigravida 110523927 Z 34.02 [employer]rier de te[employer], molecular genetics [id number] Z14.8 Body mass index 30+ - obesity [id number] Z68.37 Pre BMI 37.6 Gestation period, 15 weeks [id number] Z3A.15 Guide: Given and reviewed. Toxoplasmo sis [...] Guarantor Name 10/22/2023 2 [place] SHIRA Mazariegos [id number] Yvrose Mazariegos 10/30/2023 2 [place] SHIRA Mazariegos [id number] Yvorse Mazariegos Notes Date Note Type Note Provider [...] at her next visit. CHEN DELUCA [address] [place], [address], [facility] [employer] 10/22/2023 10:33:35 10/30/2023 text/html Yvrose is here today for a routine OB visit. She is currently at 17.6 weeks gestation. She has no complaints or questions. She is taking vitamins. She has not felt movement. She denies the presence of vaginal bleed, leaking fluid, abdominal cramps, nausea, vomiting. There are no identifiable risk factors for pre-term labor. GABY MADERA, REYNALDO-MARCELLA [address] [place], [address], [facility] [employer] 10/30/2023 11:23:54 OBGyn Episode Ob Episode Information Episode Created Date Number of Fetuses Patient Bloodtype Patient rh Status Prepregnancy Weight lbs Domestic Partner Domestic Partner Phone Father Name Speedometer Mechanic Status 10/30/19 1 A Positive OPEN Fetus Data First Name Last Name Admitted to NICU Weight (g) Sex Living Outcome Pediatric Complications Fetus ID Race Codes Race Delivery Type Problems Problem Notes PAP Problem Name Start Date End Date Resolution Snomed Code Not e Body mass index 30+ - obesity 10/30/2023 [id number] Ad Calculation Initial Ad Date Initial Exam [...] in lbs Pre/Post Dialysis Refused With clothes [id number] BP Diastolic BP Location Tested BP Systolic [...]
--- NOTE | 2024-04-13 11:54 | LDADM ---
This patient, Yvrose Mazariegos, was admitted to Labor/Delivery/Recovery 109 on 04/13/24 at 09:57. Plans for labor, pain management and were discussed with patient. Patient/family oriented to hospital policies and general routines including ID bracelet, bed and alarms, visiting hours, pain management, procedures, bathroom and other care routines, personal items, smoking policy, room service/diet and guest tray routines, infant security routines, and visiting hours. Patient/Family are encouraged to report perceived risks to care and to ask questions if they do not understand what they are told or what they should do. See OBIX for further documentation.
[2024-04-13 11:55] LABS: Basophils Percent Auto 0.3 % (0.2-1.2); Eosinophils Absolute Auto 0.1 K/mm3 (0-0.3); Eosinophils Percent Auto 0.8 % (0-4.4); Immature Granulocyte Absolute 0.12 K/mm3 (0.00-0.031); Immature Granulocyte Percent A 1.1 % (0-0.5); Lymphocytes Absolute Auto 1.76 K/mm3 (0.9-3.2); Lymphocytes Percent Auto 16.6 % (18.3-44.2); Mean Corpuscular HGB Conc 32.4 g/dl (32-36); Mean Corpuscular Hemoglobin 26.8 pg (26-34); Mean Corpuscular Volume 82.9 fl (80-100); Mean Platelet Volume 11.4 fl (7.4-10.4); Monocytes Absolute Auto 0.5 K/mm3 (0.1-0.6); Monocytes Percent Auto 4.3 % (2.6-8.5); Neutrophils Absolute Auto 8.2 K/mm3 (1.3-6.7); Neutrophils Percent Auto 76.9 % (45.5-73.1); Platelet Count Result 251 k/mm3 (150-375); Red Cell Distribution Width 13.6 % (11.5-14.5); White Blood Count 10.6 K/mm3 (4.5-10.0)
[2024-04-13] MEDS: ceFAZolin 2 GM/D5W 50 ML 2 GM/50 ML BAG IVPB (12:12)
[2024-04-13] MEDS: OXYTOCIN 30 UNITS/NS 500 ML 30 UNITS/500 ML BAG 6 UNITS IV CONT (12:13)
[2024-04-13] MEDS: LACTATED RINGERS 1,000 ML 125 ML IV CONT ×2 (12:13→19:00)
[2024-04-13 12:36] LABS: Rapid Plasma Reagin Non-Reactive (NonReactive)
[2024-04-13 12:48] LABS: HIV 1/2 Ab P24 Ag Result Negative (Negative)
--- NOTE | 2024-04-13 13:20 | WPDOBADMIT ---
Obstetrics - Admit Note Admission Note: record reviewed. No pertinent additions to the history and/or any subsequent changes in the physical findings that are not consistent with the expected course of the were found. Additions to the history and/or subsequent changes in the physical findings follow. None.Here for MIL. Cervix 3-4/80/-2 AROM with clear fluid. FHTs category I. Pitocin per protocol.
[2024-04-13] MEDS: fentaNYL CITRATE INJ (*CRX) 100 MCG/2 ML VIAL IV PUSH ×2 (14:08→15:04)
--- NOTE | 2024-04-13 15:01 | WPDANESEPP ---
Anes - Eval Pre Procedure Procedure: Labor epidural Date/Time: 04/13/24 15:01 Surgeon: Eyal Preop Diagnosis: Pain during labor Pre Op Diagnosis: iol Patient Data Age: 24 Gender: F Height: 1.7 m Weight: 111 kg Last Vital Signs Pulse 69 04/13/24 14:30 BP 136/78 04/13/24 14:30 Allergies Allergy/AdvReac Type Severity Reaction Status Date / Time amoxicillin Allergy Swelling Verified 03/28/24 13:34 of Lip/Tongue/Throat Home Medications ?Medication ?Instructions ?Recorded ?Confirmed ?Type vits,calcium 91-iron 28 pkg PO 03/28/24 History mg-folic 975 mcg-dha 200 mg oral pack ( + DHA) Laboratory Tests 04/13/24 04/13/24 11:17 11:18 WBC 10.6 H K/mm3 (4.5-10.0) RBC 4.10 L M/mm3 (4.2-5.4) Hgb 11.0 L g/dL (12.0-15.0) Hct 34.0 L % (37.0-47.0) MCV 82.9 fl (80-100) MCH 26.8 pg (26-34) MCHC 32.4 g/dl (32-36) RDW 13.6 % (11.5-14.5) Plt Count 251 k/mm3 (150-375) MPV 11.4 H fl (7.4-10.4) Immature Gran % (Auto) 1.1 H % (0-0.5) Neut % (Auto) 76.9 H % (45.5-73.1) Lymph % (Auto) 16.6 L % (18.3-44.2) [place] % (Auto) 4.3 % (2.6-8.5) Eos % (Auto) 0.8 % (0-4.4) Baso % (Auto) 0.3 % (0.2-1.2) Lymph # (Auto) 1.76 K/mm3 (0.9-3.2) [place] # (Auto) 0.5 K/mm3 (0.1-0.6) Eos # (Auto) 0.1 K/mm3 (0-0.3) Baso # (Auto) 0.0 K/mm3 (0.0-0.1) Abs Immat Gran (auto) 0.12 H K/mm3 (0.00-0.031) Absolute Neuts (auto) 8.2 H K/mm3 (1.3-6.7) Absolute Nucleated RBC 0.000 K/mm3 (0.0-0.012) Nucleated RBC % 0.0 % (0.0-0.2) RPR Non-reactive (NonReactive) HIV 1&2 Ab/P24 Ag 4thGn Negative (Negative) Blood Type A Positive Antibody Screen Negative Patient hx anesthesia problems: none Family hx anesthesia problems: none Results Review: All pre-operative results and documents have been reviewed as part of the pre-operative evaluation. [facility] Past Medical History Medical History Metatarsalgia of right foot Capsulitis of metatarsophalangeal (MTP) joint of right foot Social History Social History Smoking status: Never smoker Substance use: never Do You Feel Safe in your Home?: Yes Lack of Transportation: No Lack of Food: Never True Current Housing: I Have Housing Concerned About Future Housing: No Difficulty Paying Gas/Electric Bills: No Difficulty Paying for Meds: No Currently Unemployed: No Education: Associate Degree Difficulty w/ Childcare or Family Care: No Spiritual care concerns: No Exam Day of Procedure 04/13/24 15:01 Patient weight: obese Heart: regular rate and rhythm Lungs: clear to auscultation Airway: Mallampati scale class II Neurological: alert and oriented
[2024-04-13] MEDS: OXYTOCIN 30 UNITS/NS 500 ML 30 UNITS/500 ML BAG 999 UNITS IV CONT (21:38)
--- NOTE | 2024-04-13 21:59 | PM.OBPRVD ---
OB - Vaginal Delivery Note Procedure Delivery date: 04/13/24 Events: Other (MIL at 39 wks with favorable cervix) Induction method: AROM and Per Pitocin Protocol Delivery monitor: External FHT and External Uterine Route of delivery: Episiotomy description: None Laceration Description: Periurethral ( deep left ) and Perineal - 2nd Degree Delivery repair: vicryl (3-0) Specimen: No Quantitative Blood Loss (ml): 850 (brisk bleeding from L periurethral laceration) Anesthesia type: epidural and local Disposition: Floor Complications: No immediate complications Baby Date of : 04/13/24 Gestational Age by Date: 39 gender: Female presentation: vertex position: Right Occiput Anterior Placenta delivery description: Manual Removal (cord avulsion when placenta at cervix) Cord Vessel Description: 3 Vessels and Delayed Cord Clamping score one minute: 8 score five minutes: 9
[2024-04-13] MEDS: OXYTOCIN 30 UNITS/NS 500 ML 30 UNITS/500 ML BAG 125 UNITS IV CONT (22:00)
--- NOTE | 2024-04-13 22:02 | P.DS_ITS ---
DS: Admitting Diagnosis Discharge Date 04/15/24 Admitting Diagnosis IUP 39 wks for RM DS: Discharge Diagnosis Discharge Diagnosis (1) (normal spontaneous vaginal delivery): Code(s): O80 - Encounter for full-term uncomplicated delivery Status: Acute OB - DS: Summary OB Procedures : Ultrasound OB Procedures Intrapartum: Spontaneous Vag Delivery OB Procedures: : None Peripartum Data Infant Delivery Method: Natural Vaginal Laceration Description: Periurethral ( deep left ) and Perineal - 2nd Degree Episiotomy description: None complications: none Status at Discharge Functional status at discharge: independent ambulation Overall status at discharge: patient is progressing back to baseline Time Spent with Patient Time attestation: Total time spent providing and/or coordinating discharge services: DS: Data Data Completed and Pending Labs on day of discharge: Labs from last 24 hours 04/13/24 04/13/24 11:18 11:17 WBC 10.6 H RBC 4.10 L Hgb 11.0 L Hct 34.0 L MCV 82.9 MCH 26.8 MCHC 32.4 RDW 13.6 Plt Count 251 MPV 11.4 H Immature Gran % (Auto) 1.1 H Neut % (Auto) 76.9 H Lymph % (Auto) 16.6 L [place] % (Auto) 4.3 Eos % (Auto) 0.8 Baso % (Auto) 0.3 Lymph # (Auto) 1.76 [place] # (Auto) 0.5 Eos # (Auto) 0.1 Baso # (Auto) 0.0 Abs Immat Gran (auto) 0.12 H Absolute Neuts (auto) 8.2 H Absolute Nucleated RBC 0.000 Nucleated RBC % 0.0 RPR Non-reactive HIV 1&2 Ab/P24 Ag 4thGn Negative Blood Type A Positive Antibody Screen Negative Discharge Plan Discharge Attending physician on discharge: Debbie Birch Discharging Clinician: Debbie Birch Anticipated Discharge Date/Time: 04/15/24 22:03 Patient Disposition: Home, Self-Care Activity: may shower and pelvic rest Diet: regular Patient Instructions: Antibiotic Form Patient Language: Hebrew Stand Alone Forms: General Discharge Information Follow-up/Referrals: Debbie Birch MD [Physician] - 6 Weeks Discharge Medications: Continued + DHA 28 mg iron- 975 mcg-200 mg combo pack PO Date of admission: 04/13/24 09:57 Primary Care Provider: YousifLillian Admitting Provider: Debbie Birch Attending physician on admission: Debbie Birch Condition: Stable
[2024-04-14] VITALS (18 sets, daily range): BP systolic 106–127; BP diastolic 48–65; PULSE 68–128; RESP 16–18; TEMP 36.1–36.8; O2SAT 97–100
[2024-04-14] MEDS: COSYNTROPIN 0.25 MG/ML VIAL 1 MG IV PUSH (00:17)
--- NOTE | 2024-04-14 01:22 | OBPPTRN ---
Patient transferred to post room #279 via wheelchair. Support person present. Oriented to unit, room, information board, rooming in, admission packet and security measures. Patient verbalizes understanding.
[2024-04-14] MEDS: IBUPROFEN 600 MG TABLET PO ×3 (01:45→21:50)
[2024-04-14] MEDS: ACETAMINOPHEN 325 MG TABLET 650 MG PO ×2 (01:45→21:50)
[2024-04-14 04:57] LABS: Hematocrit 25.1 % (37.0-47.0); Hemoglobin 8.2 g/dL (12.0-15.0)
--- NOTE | 2024-04-14 07:49 | PM.OBPNVD ---
OB - PN: Subj Subjective Date/time seen: 04/14/24 07:49 Patient comments: no complaints and pain well controlled baby status: doing well OB - PN: Obj Data Labs 04/14/24 03:13 Labs: Laboratory Results - last 24 hr 04/13/24 04/13/24 04/14/24 11:17 11:18 03:13 WBC 10.6 H RBC 4.10 L Hgb 11.0 L 8.2 L Hct 34.0 L 25.1 L MCV 82.9 MCH 26.8 MCHC 32.4 RDW 13.6 Plt Count 251 MPV 11.4 H Immature Gran % (Auto) 1.1 H Neut % (Auto) 76.9 H Lymph % (Auto) 16.6 L [place] % (Auto) 4.3 Eos % (Auto) 0.8 Baso % (Auto) 0.3 Lymph # (Auto) 1.76 [place] # (Auto) 0.5 Eos # (Auto) 0.1 Baso # (Auto) 0.0 Abs Immat Gran (auto) 0.12 H Absolute Neuts (auto) 8.2 H Absolute Nucleated RBC 0.000 Nucleated RBC % 0.0 RPR Non-reactive HIV 1&2 Ab/P24 Ag 4thGn Negative Blood Type A Positive Antibody Screen Negative OB - PN A/P Plan day: 1 Plan: routine care Time Spent With Patient Time: Total time spent is greater than 50% in coordination of care (as documented) at patient's floor/unit and/or counseling patient: Exam : Bimanual exam- vagina & uterus: other (Uterus firm, nt @U)
[2024-04-14] MEDS: MULTIVIT/MIN/PREN/FOL AC/IRON TABLET 1 TAB PO (08:25)
[2024-04-14] MEDS: POLYSACCHARIDE IRON COMPLEX 150 MG CAPSULE PO ×2 (08:25→16:44)
[2024-04-14] MEDS: DOCUSATE SODIUM 100 MG CAPSULE PO ×2 (08:26→16:44)
[2024-04-14] MEDS: BENZOCAINE 20% AER SPR (*SP) 56 GM CAN 1 SPRAY TOPICAL (08:26)
[2024-04-14] MEDS: WITCH HAZEL 40 PADS 1 PAD TOPICAL (08:27)
--- NOTE | 2024-04-14 08:35 | PC.NURSE ---
0835- Primary RN requested assistance for patient. She breastfed a few times initially yesterday but chose to bottle feed through the night. Baby will latch to the breast in football hold and suck once or twice before letting go of the breast and fussing. We tried for several minutes but when baby became frustrated, mom was advised to place baby skin to skin and wait 30 minutes and try again when baby is more receptive. Encouraged mom that sometimes babies who have had a bottle expect milk to flow instantly into their mouths at the breast. Mom discouraged that her milk isn't in and we discussed normal milk production and expectations. We will attempt again in 30 minutes and then give a bottle if needed. Mom verbalized understanding, needs reinforcement. Reported to primary RN. 0900- Patient called out for bottles, taken by primary RN. Unsure if she attempted to breastfeed again on her own before going to the supplement. Patient has the name and number and knows that she should attempt at breast every feeding if that is her intention. Updated primary RN.
--- NOTE | 2024-04-14 14:35 | WPDANLDPN2 ---
Anes-Prog Note L&D Date/Time: 04/14/24 14:35 Comfortable throughout: labor and delivery Neuraxial method: epidural Epidural/Spinal procedure site: clean & non-tender Neuro status: Neuro function grossly intact. Cardiovascular status: normal Respiratory status: normal Airway patency: baseline Mental status: baseline Post-Op hydration status: normal Vital Signs: Last Vital Signs Temp 97.5 F L 04/14/24 13:07 Pulse 88 04/14/24 13:07 Resp 16 04/14/24 13:07 BP 125/60 04/14/24 13:07 Pulse Ox 99 04/14/24 13:07 O2 Del Method Room Air 04/14/24 01:30 Pain score (VAS): 6 I/O: Intake & Output 04/13/24 04/14/24 04/14/24 23:59 07:59 15:59 Intake Total 847.9 1050 240 Output Total 50 Balance 847.9 1000 240 Post-procedural complaints: none Patient feedback: Patient satisfied with anesthetic care.
--- NOTE | 2024-04-15 07:50 | P.PNOB_ITS ---
OB - PN: Subj Subjective Date/time seen: 04/15/24 07:50 Patient comments: no complaints and pain well controlled baby status: doing well [place] feeding status: breast and bottle feeding OB - PN: Obj Data Labs 04/14/24 03:13 OB - PN A/P Plan day: 2 Plan: routine care, discharge home, follow up 6 weeks and other (unsure on plan for bc) Time Spent With Patient Time: Total time spent is greater than 50% in coordination of care (as documented) at patient's floor/unit and/or counseling patient: Exam 2 : Bimanual exam- vagina & uterus: other (Uterus firm, nt @U)
[2024-04-15 08:00] VITALS: PULSE 93; RESP 16; O2SAT 100
[2024-04-15 08:05] VITALS: BP 123/71; PULSE 93; RESP 16; TEMP 36.6; O2SAT 100
[2024-04-15] MEDS: MEASLES,MUMPS,RUBELLA VACCINE 0.5 ML VIAL SUB-Q (09:50)
[2024-04-15] MEDS: POLYSACCHARIDE IRON COMPLEX 150 MG CAPSULE PO ×2 (10:46→16:16)
[2024-04-15] MEDS: DOCUSATE SODIUM 100 MG CAPSULE PO ×2 (10:47→16:15)
--- NOTE | 2024-04-15 17:07 | PC.NURSE ---
1650. Called to assist mom with feeding infant with a bottle. Mom reports has had difficulties taking a bottle and is not getting in a full feeding in an appropriate amount of time. Infant last fed around 1330. sleeping at this time, but when picked up by this RN infant did begin to lick her lips. This RN showed mom how to properly hold at an incline and place her head in the sniffing position. We reviewed stimulating the infants suck reflex to get her to suck from the bottle and reviewed burping techniques. was able to take 28 ml during this feeding & infant given to dad after for burping. Both parents verbalized understanding and know to call for further assistance.
[2024-04-18 11:12] VITALS: BP 124/77; PULSE 100; RESP 18; TEMP 36.9; O2SAT 100
== END 2024-04-15 17:50 | disposition home or self-care (01) | DRG 560 ==
LOC: ANHLDR 22:03 → ANHOB2 04-14 02:07
PROVIDERS: Admitting Provider Obstetrics & Gynecology Gynecology; PCP Physician Assistant; Visit Provider Obstetrics & Gynecology Gynecology
DX: O99.824 Streptococcus B carrier state complicating childbirth (principal); Z37.0 Single live birth; Z3A.39 39 weeks gestation of pregnancy; O70.1 Second degree perineal laceration during delivery; O69.89X0 Labor and delivery complicated by other cord complications, not applicable or unspecified; O71.82 Other specified trauma to perineum and vulva
CPT/HCPCS: 36415; 85014; 85018; 85025; 86592; 86703; 86850; 86900; 86901; 90710; A9270; G0432; J0690; J0834; J2590; J2795; J3010; J7120